=== PATIENT | male | born 1975 | race Caucasian/White ===

== ENCOUNTER 2017-08-23 16:52 | Emergency (ER) | payer BC, OTHER ==
[~2017-08-23] VITALS: Wt 86.2 kg
[~2017-08-23 16:52] MED LIST: AMITRIPTYLINE50 MG PO; BUSPAR15 MG PO; CARAFATE1 G1 PO; CITALOPRAM40 MG PO; CYMBALTA60 MG PO; DIPHEDRYL25 M3 PO; FLUDROCORTISON0.1 MG PO; IBU800 MG PO; NEURONTIN300 MG PO; PROAIR HFA8.5 GM IH; RISPERDAL0.5 MG PO; ROXICODONE30 MG PO; TRAMADOL HCL50 MG PO
[2017-08-23 18:02] LABS: HEMATOCRIT 49.4 % (42.0-52.0); HEMOGLOBIN 16.7 g/dl (14.0-18.0); MEAN CELL VOLUME 85.3 fl (80.0-94.0); MEAN CORPUSCULAR HGB 28.8 pg (27.0-31.0); MEAN CORPUSCULAR HGB CONC 33.8 g/dl (33.0-37.0); MEAN PLATELET VOLUME 8.3 fl (9.6-12.3); PLATELET COUNT AUTOMATED 208 10*3/uL (130-400); RED BLOOD COUNT 5.79 10*6/uL (4.50-5.90)
[2017-08-23 18:03] LABS: BILIRUBIN NEGATIVE (NEGATIVE); BLOOD 1+ (NEGATIVE); CLARITY CLEAR (CLEAR); COLOR YELLOW (YELLOW); GLUCOSE NEGATIVE (NEGATIVE); KETONE NEGATIVE (NEGATIVE); LEUKO ESTERASE NEGATIVE (NEGATIVE); NITRITE NEGATIVE (NEGATIVE); PH 5.5 (5.0-9.0); SPECIFIC GRAVITY <= 1.005 (1.005-1.030); UROBILINOGEN 0.2 E.U./dl (0.2-1.0)
[2017-08-23 18:13] LABS: URINE AMPHETAMINES < 1000 (1000ng/ml); URINE BARBITURATES < 200 (200ng/ml); URINE BENZODIAZEPINES < 200 (200ng/ml); URINE CANNABINOIDS (THC) < 50 (50ng/ml); URINE COCAINE < 300 (300ng/ml); URINE METHADONE < 300 (300ng/ml); URINE OPIATES < 300 (300ng/ml)
[2017-08-23 18:20] LABS: URINE PHENCYCLIDINE < 25 (25ng/ml)
[2017-08-23 18:23] LABS: ALBUMIN 4.4 gm/dl (3.1-4.5); ALKALINE PHOSPHATASE 122 U/L (45-117); BUN 5 mg/dl (7-24); CHLORIDE 108 mmol/L (98-107); CREATININE 0.71 mg/dL (0.70-1.30); LIPASE 229 U/L (73-393); POTASSIUM 3.4 mmol/L (3.5-5.1); SGOT/AST 21 IU/L (3-35); SGPT/ALT 22 U/L (12-78); SODIUM 143 mmol/L (136-145); TOTAL PROTEIN 7.5 gm/dL (6.4-8.2)
[2017-08-23 18:24] LABS: BACTERIA TRACE; RBC 0-2 rbc/hpf (0-2); WBC 0-2 wbc/hpf (0-5)
[2017-08-23 18:27] LABS: TROPONIN I < 0.015 ng/ml (<0.045)
[2017-08-23 18:35] LABS: ATYPICAL LYMPHS 3 % (0-0); BASOPHILS 2 % (0-1); PLATELET SUFFICIENCY NORMAL (NORMAL); TOTAL CELLS COUNTED 100 #CELLS
[2017-08-24 23:30] VITALS: BP 135/70
== END 2017-08-24 23:42 | disposition home health service (06) ==
LOC: ED 16:52
PROVIDERS: Emergency Medicine
DX: F10.129 Alcohol abuse with intoxication, unspecified (principal); R45.851 Suicidal ideations; Z98.890 Other specified postprocedural states; Z98.84 Bariatric surgery status; Z79.899 Other long term (current) drug therapy; Z88.5 Allergy status to narcotic agent; Z88.8 Allergy status to other drugs, medicaments and biological substances; Y90.9 Presence of alcohol in blood, level not specified

== ENCOUNTER 2018-10-28 22:03 | Emergency (ER) | payer OTHER, BC ==
[~2018-10-28] VITALS: Ht 172.7 cm; Wt 83.9 kg
--- NOTE | ~2018-10-28 | EKG ---
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
[2018-10-28 22:50] LABS: BASO # 0.1 10*3/uL (0.0-0.1); BASO % 1.1 % (0.0-1.0); EOS # 0.3 10*3/uL (0.0-0.4); EOS % 4.1 % (1.0-4.0); HEMATOCRIT 36.5 % (42.0-52.0); HEMOGLOBIN 11.7 g/dl (14.0-18.0); LYMPH # 2.3 10*3/uL (1.3-4.4); LYMPH % 38.3 % (27.0-41.0); MEAN CELL VOLUME 82.2 fl (80.0-94.0); MEAN CORPUSCULAR HGB 26.4 pg (27.0-31.0); MEAN CORPUSCULAR HGB CONC 32.1 g/dl (33.0-37.0); MEAN PLATELET VOLUME 8.7 fl (9.6-12.3); MONO # 0.5 10*3/uL (0.1-1.0); MONO % 7.4 % (3.0-9.0); NEUT # 2.9 10*3/uL (2.3-7.9); NEUT % 48.1 % (47.0-73.0); PLATELET COUNT AUTOMATED 197 10*3/uL (130-400); RED BLOOD COUNT 4.44 10*6/uL (4.50-5.90); WHITE BLOOD COUNT 6.1 10*3/uL (4.8-10.8)
[2018-10-28 23:06] LABS: ACETAMINOPHEN (TYLENOL) 9.4 ug/ml (10-30); ALBUMIN 3.4 gm/dl (3.1-4.5); ALKALINE PHOSPHATASE 53 U/L (45-117); BUN 6 mg/dl (7-24); CHLORIDE 106 mmol/L (98-107); CREATININE 0.76 mg/dL (0.70-1.30); POTASSIUM 3.6 mmol/L (3.5-5.1); SGOT/AST 18 IU/L (3-35); SGPT/ALT 22 U/L (12-78); SODIUM 140 mmol/L (136-145); TOTAL PROTEIN 6.5 gm/dL (6.4-8.2)
[2018-10-28 23:08] LABS: TROPONIN I < 0.015 ng/ml (<0.045)
[2018-10-29 00:48] LABS: BILIRUBIN NEGATIVE (NEGATIVE); BLOOD NEGATIVE (NEGATIVE); CLARITY CLEAR (CLEAR); COLOR STRAW (YELLOW); GLUCOSE TRACE (NEGATIVE); KETONE NEGATIVE (NEGATIVE); LEUKO ESTERASE NEGATIVE (NEGATIVE); NITRITE NEGATIVE (NEGATIVE); PH 6.5 (5.0-9.0); SPECIFIC GRAVITY <= 1.005 (1.005-1.030); UROBILINOGEN 0.2 E.U./dl (0.2-1.0)
[2018-10-29 00:59] LABS: EPITHELIAL CELLS 0-2; RBC 0-2 rbc/hpf (0-2); URINE AMPHETAMINES < 1000 (1000ng/ml); URINE BARBITURATES < 200 (200ng/ml); URINE BENZODIAZEPINES < 200 (200ng/ml); URINE CANNABINOIDS (THC) < 50 (50ng/ml); URINE COCAINE < 300 (300ng/ml); URINE METHADONE < 300 (300ng/ml); URINE OPIATES < 300 (300ng/ml); WBC 0-2 wbc/hpf (0-5)
[2018-10-29 01:01] LABS: URINE PHENCYCLIDINE < 25 (25ng/ml)
[2018-10-29 07:43] VITALS: BP 110/72
== END 2018-10-29 09:27 | disposition home or self-care (01) ==
LOC: ED 22:03
PROVIDERS: Emergency Medicine
DX: F31.9 Bipolar disorder, unspecified (principal); Z88.5 Allergy status to narcotic agent; Z88.8 Allergy status to other drugs, medicaments and biological substances; Z79.899 Other long term (current) drug therapy

== ENCOUNTER 2018-11-18 16:19 | Emergency (ER) | payer OTHER, BC ==
[~2018-11-18] VITALS: Wt 90.7 kg
--- NOTE | ~2018-11-18 | EKG ---
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
[2018-11-18 17:01] LABS: BASO % 0.8 % (0.0-1.0); HEMATOCRIT 38.1 % (42.0-52.0); HEMOGLOBIN 11.8 g/dl (14.0-18.0); LYMPH # 1.4 10*3/uL (1.3-4.4); LYMPH % 37.8 % (27.0-41.0); MEAN CELL VOLUME 82.3 fl (80.0-94.0); MEAN CORPUSCULAR HGB 25.5 pg (27.0-31.0); MEAN PLATELET VOLUME 8.7 fl (9.6-12.3); MONO # 0.4 10*3/uL (0.1-1.0); MONO % 9.7 % (3.0-9.0); NEUT # 1.9 10*3/uL (2.3-7.9); NEUT % 50.2 % (47.0-73.0); PLATELET COUNT AUTOMATED 176 10*3/uL (130-400); RED BLOOD COUNT 4.63 10*6/uL (4.50-5.90); RED CELL DISTRI WIDTH 15.4 % (0-14.5); WHITE BLOOD COUNT 3.8 10*3/uL (4.8-10.8)
[2018-11-18 17:38] LABS: ACETAMINOPHEN (TYLENOL) 5.1 ug/ml (10-30); ALBUMIN 3.5 gm/dl (3.1-4.5); ALKALINE PHOSPHATASE 57 U/L (45-117); BUN 6 mg/dl (7-24); CHLORIDE 102 mmol/L (98-107); CREATININE 0.67 mg/dL (0.70-1.30); POTASSIUM 3.6 mmol/L (3.5-5.1); SGOT/AST 17 IU/L (3-35); SGPT/ALT 15 U/L (12-78); SODIUM 138 mmol/L (136-145); TOTAL PROTEIN 6.2 gm/dL (6.4-8.2)
[2018-11-18 17:42] LABS: BILIRUBIN NEGATIVE (NEGATIVE); BLOOD NEGATIVE (NEGATIVE); CLARITY CLEAR (CLEAR); COLOR YELLOW (YELLOW); GLUCOSE NEGATIVE (NEGATIVE); KETONE NEGATIVE (NEGATIVE); LEUKO ESTERASE NEGATIVE (NEGATIVE); NITRITE NEGATIVE (NEGATIVE); SPECIFIC GRAVITY <= 1.005 (1.005-1.030); UROBILINOGEN 0.2 E.U./dl (0.2-1.0)
[2018-11-18 17:50] LABS: URINE AMPHETAMINES < 1000 (1000ng/ml); URINE BARBITURATES < 200 (200ng/ml); URINE BENZODIAZEPINES < 200 (200ng/ml); URINE CANNABINOIDS (THC) < 50 (50ng/ml); URINE COCAINE < 300 (300ng/ml); URINE METHADONE < 300 (300ng/ml); URINE OPIATES < 300 (300ng/ml)
[2018-11-18 18:04] LABS: URINE PHENCYCLIDINE < 25 (25ng/ml)
[2018-11-18 18:46] VITALS: BP 92/51
[2018-11-18 18:46] LABS: VALPROIC ACID (DEPAKENE) 1112.4 ug/ml (50-100)
== END 2018-11-18 19:00 | disposition short-term general hospital (02) ==
LOC: ED 16:19
PROVIDERS: Physician Assistant
DX: T42.6X2A Poisoning by other antiepileptic and sedative-hypnotic drugs, intentional self-harm, initial encounter (principal); G92 Toxic encephalopathy; J96.01 Acute respiratory failure with hypoxia; F31.9 Bipolar disorder, unspecified; F10.129 Alcohol abuse with intoxication, unspecified; Z88.6 Allergy status to analgesic agent; Z88.8 Allergy status to other drugs, medicaments and biological substances; Z79.899 Other long term (current) drug therapy; Y90.9 Presence of alcohol in blood, level not specified; Y92.89 Other specified places as the place of occurrence of the external cause

== ENCOUNTER 2019-11-24 18:51 | Inpatient (IN) | payer OTHER, BC ==
[2019-11-24] VITALS (7 sets, daily range): BP systolic 111–127; BP diastolic 62–75
[~2019-11-24] VITALS: Ht 177.8 cm; Wt 95.3 kg
--- NOTE | 2019-11-24 19:05 | NUR ---
Transfer of care from Gracie mae.
--- NOTE | 2019-11-24 19:12 | NUR ---
In to see pt at this time.Pt has 18 gauge infusing in left arm with fluids.Pt has clear lung sounds and bowel sounds x4.Pt states he has pain in right upper abdomen and started when he was eating ice cream.Pt states he is ok and does not need anything right now.
--- NOTE | 2019-11-24 19:14 | NUR ---
Pt denines wounds at this time.Pt has some old scratches on right and left knee at tbis time.
[2019-11-24 19:49] LABS: HEMATOCRIT 25.5 % (42.0-52.0); MEAN CELL VOLUME 67.3 fl (80.0-94.0); MEAN CORPUSCULAR HGB 17.4 pg (27.0-31.0); MEAN CORPUSCULAR HGB CONC 25.9 g/dl (33.0-37.0); MEAN PLATELET VOLUME 8.6 fl (9.6-12.3); PLATELET COUNT AUTOMATED 211 10*3/uL (130-400); RED BLOOD COUNT 3.79 10*6/uL (4.50-5.90); RED CELL DISTRI WIDTH 19.5 % (0-14.5); WHITE BLOOD COUNT 5.4 10*3/uL (4.8-10.8)
[2019-11-24 20:02] LABS: ALBUMIN 3.3 gm/dl (3.1-4.5); ALKALINE PHOSPHATASE 61 U/L (45-117); BUN 12 mg/dl (7-24); CHLORIDE 107 mmol/L (98-107); CREATININE 0.89 mg/dL (0.70-1.30); LIPASE 1214 U/L (73-393); POTASSIUM 3.5 mmol/L (3.5-5.1); SGOT/AST 14 IU/L (3-35); SGPT/ALT 11 U/L (12-78); SODIUM 136 mmol/L (136-145)
--- NOTE | 2019-11-24 20:05 | NUR ---
Pt to ct scan at this time.
[2019-11-24 20:06] LABS: BILIRUBIN NEGATIVE (NEGATIVE); BLOOD NEGATIVE (NEGATIVE); CLARITY CLEAR (CLEAR); COLOR STRAW (YELLOW); GLUCOSE NEGATIVE (NEGATIVE); KETONE NEGATIVE (NEGATIVE); LEUKO ESTERASE NEGATIVE (NEGATIVE); NITRITE NEGATIVE (NEGATIVE); SPECIFIC GRAVITY 1.005 (1.005-1.030); UROBILINOGEN 0.2 E.U./dl (0.2-1.0)
[2019-11-24 20:09] LABS: BASOPHILS 1 % (0-1); PLATELET SUFFICIENCY NORMAL (NORMAL); TOTAL CELLS COUNTED 100 #CELLS
[2019-11-24 20:17] LABS: EPITHELIAL CELLS 0-2; WBC 0-2 wbc/hpf (0-5)
--- NOTE | 2019-11-24 20:40 | NUR ---
aware of pt requesting more pain medications and stating that pain is not better at this time.
--- NOTE | 2019-11-24 21:05 | NUR ---
aware of pt refusing to place gown on at this time till her has more pain medication at this time.
--- NOTE | 2019-11-24 21:25 | NUR ---
Spoke with Pharmacy and aware when protinx scanned it stated to was zoyson.Ok to send back at this time.
--- NOTE | 2019-11-24 21:31 | NUR ---
Blood back stated blood was ready at this time.
--- NOTE | 2019-11-24 22:20 | NUR ---
Pt states pain is 10/10 at this time and not improving pt will fall asleep when leaving the room.
--- NOTE | 2019-11-24 22:40 | NUR ---
aware of pt requesting more pain medication at this time and wishing to speak to md at this time.
--- NOTE | 2019-11-24 23:05 | NUR ---
Pt to ct scan at this time.Blood infusing at 125 and prontix drip at 10cc per order and with pt at this time.
--- NOTE | 2019-11-24 23:28 | NUR ---
aware of pt requesting to speak to him at this time.
--- NOTE | 2019-11-24 23:29 | NUR ---
In to see pt at this time. Pt requesting more pain medication at this time.Explained to pt that we will get pt to room at this time.Emotional support attempted at this time.
--- NOTE | 2019-11-24 23:43 | NUR ---
Blood increased to 150 cc an hour at this time.
[2019-11-25] VITALS (15 sets, daily range): BP systolic 100–139; BP diastolic 56–89
--- NOTE | 2019-11-25 00:17 | NUR ---
Also attempted to call report at this time.
--- NOTE | 2019-11-25 00:20 | NUR ---
Report called to Anika mae.
--- NOTE | 2019-11-25 00:28 | NUR ---
Pt transport to floor with Shanique mae.Pt on monitor and blood and protonix infusing.
--- NOTE | 2019-11-25 00:35 | NUR ---
A 44, admitted to , under the services of SUZIE Gold DO with a diagnosis of ULCER. ANEMIA (HGB 6.6). PANCREATITIS. Chief complaint is SUDDEN RUQ PAIN . Patient arrived via bed from ER. Monitor applied. Initial assessment completed. Vital signs taken and recorded. SUZIE GOLD DO / DR OSBOREN notified of admission to the unit. Orders received. See assessment for past medical history, medications and allergies. Patient and/or family oriented to unit. [facility] visitation policy reviewed. Clothing/patient valuable form completed. ZANDER WHITEHEAD
[2019-11-25] MEDS ORDERED: RISPERIDONE1 MG PO (00:45)
[2019-11-25] MEDS ORDERED: DULOXETINE HCL60 MG PO (00:45)
--- NOTE | 2019-11-25 01:00 | NUR ---
ABRASIONS NOTED TO BILATERAL KNEES, REFUSING PICS
--- NOTE | 2019-11-25 01:15 | NUR ---
MEDICATED WITH ROUTINE DILAUDID IV PER ORDER FOR COMPLAINTS OF RIGHT ABD PAIN RATING A 10. WILL MONITOR FOR EFFECTIVENESS
--- NOTE | 2019-11-25 01:56 | NUR ---
2ND UNIT OF BLOOD TRANSFUSION INITIATED PER ORDER. VSS. PATIENT TOLERATING
--- NOTE | 2019-11-25 02:00 | NUR ---
MEDS APPEAR EFFECTIVE. RESTING WITH EYES CLOSED. RESPIRATIONS EASY. BLOOD TRANSFUSING PER ORDER. VSS. CALL LIGHT WITHIN REACH
--- NOTE | 2019-11-25 03:00 | NUR ---
BLOOD TRANSFUSION MAINTAINED. VSS. CALL LIGHT WITHIN REACH. NO VOICED COMPLAINTS
--- NOTE | 2019-11-25 04:00 | NUR ---
BLOOD CONTINUES TO TRANSFUSE PER ORDER. PATIENT TOLERATING WELL WITH NO ADVERSE REACTION NOTED
--- NOTE | 2019-11-25 04:18 | NUR ---
BLOOD TRANSFUSION COMPLETE. VITALS REMAINS STABLE. CALL LIGHT WITHIN REACH.
--- NOTE | 2019-11-25 05:58 | NUR ---
TATELAURA P [id number] Please refer to the physician's history and physical for past medical history, comorbid conditions, and allergies. Diagnosis: ULCER ANEMIA PANCREATITIS Darryl Score: 20,LOW OR NO RISK WOUND DESCRIPTIONS: Wound Number: 1 Location of the wound: right knee Type of wound: abrasion Thickness: Partial Size: 8.5cm x 10.5cm x <0.1cm Tunneling: none Undermining: none Sinus Tract: none Presence of Exudate: none Amount: None Color: Red, yellow, brown Odor: None Periwound Skin Appearance: Erythema Wound edges: approximated Pain (associated with wound): none at time of assessment How does patient state this happened? pt states this happened about 6 days ago when he fell playing basketball Wound Number: 2 Location of the wound: left knee Type of wound: abrasion Thickness: Partial Size: 6.5cm x 6.0cm x <0.1cm Tunneling: none Undermining: none Sinus Tract: none Presence of Exudate: none Amount: None Color: Red, yellow, brown Odor: None Periwound Skin Appearance: Erythema Wound edges: approximated Pain (associated with wound): none at time of assessment How does patient state this happened? pt states this happened about 6 days ago when he fell playing basketball This nurse went to obtained photographs and patient refused at this time. Patient also states that he doesn't want any treatments at this time. Surface the patient is resting on: Isoflex SKIN PREVENTION RECOMMENDATION: 1. Pressure redistribution support surface as appropriate 2. Elevate heels 3. Remove boots/TEDS every shift and reapply 4. Head of bed 30 degrees as tolerated 5. Assess nutrition and hydration 6. Manage moisture 7. Avoid the use of containment devices while in bed 8. Use absorptive products on surfaces limit layers of linens on bed 9. Turn and reposition every 1-2 hours in bed and every 1 hour in chair as tolerated 10. Weight shifts every 15 minutes while up in chair 11. Offloading with pillows or device to keep heels elevated off bed 12. Monitor skin at least every shift 13. Inspect under medical devices twice a day WOUND TREATMENT RECOMMENDATIONS: Cleanse right and left knee with nss and apply bactroban bid and cover with dsd. Patient states he will care for these areas when he returns home and doesn't wish to follow up in an outpatient setting at this time
--- NOTE | 2019-11-25 06:00 | NUR ---
RESTING WITH EYES CLOSED. RESPIRATIONS EASY. IV FLUIDS AND PROTONIX DRIP MAINTAINED. CALL LIGHT WITHIN REACH.
[2019-11-25 07:00] LABS: HEMATOCRIT 39.4 % (42.0-52.0); MEAN CELL VOLUME 68.3 fl (80.0-94.0); MEAN CORPUSCULAR HGB 19.1 pg (27.0-31.0); MEAN CORPUSCULAR HGB CONC 27.9 g/dl (33.0-37.0); MEAN PLATELET VOLUME 8.8 fl (9.6-12.3); NUCLEATED RED BLOOD CELL 1.6 % (0.0-0.0); PLATELET COUNT AUTOMATED 233 10*3/uL (130-400); RED BLOOD COUNT 5.77 10*6/uL (4.50-5.90); RED CELL DISTRI WIDTH 21.7 % (0-14.5)
[2019-11-25 07:02] LABS: WHITE BLOOD COUNT 1.9 10*3/uL (4.8-10.8)
[2019-11-25 07:26] LABS: ALBUMIN 3.2 gm/dl (3.1-4.5); ALKALINE PHOSPHATASE 51 U/L (45-117); BUN 10 mg/dl (7-24); CHLORIDE 110 mmol/L (98-107); CREATININE 0.72 mg/dL (0.70-1.30); POTASSIUM 3.6 mmol/L (3.5-5.1); SGOT/AST 53 IU/L (3-35); SGPT/ALT 14 U/L (12-78); SODIUM 137 mmol/L (136-145); TOTAL PROTEIN 6.3 gm/dL (6.4-8.2)
--- NOTE | 2019-11-25 07:50 | NUR ---
DR OSBORNE CONTACTED [facility]. LABS REVIEWED FROM ADMISSION AND THIS AM. STAT LABS ORDERED FOR VERIFICATION
[2019-11-25 08:10] LABS: HEMATOCRIT 39.4 % (42.0-52.0); MEAN CELL VOLUME 67.9 fl (80.0-94.0); MEAN CORPUSCULAR HGB 19.5 pg (27.0-31.0); MEAN CORPUSCULAR HGB CONC 28.7 g/dl (33.0-37.0); MEAN PLATELET VOLUME 8.2 fl (9.6-12.3); NUCLEATED RED BLOOD CELL 0.1 10*3/uL (0.0-0.0); NUCLEATED RED BLOOD CELL 2.4 % (0.0-0.0); PLATELET COUNT AUTOMATED 220 10*3/uL (130-400); RED CELL DISTRI WIDTH 21.7 % (0-14.5); WHITE BLOOD COUNT 2.1 10*3/uL (4.8-10.8)
[2019-11-25 08:17] LABS: ATYPICAL LYMPHS 1 % (0-0); TOTAL CELLS COUNTED 100 #CELLS
[2019-11-25 08:18] LABS: MICROCYTOSIS MODERATE; OVALOCYTES FEW; PLATELET SUFFICIENCY NORMAL (NORMAL); POLYCHROMASIA SLIGHT; TARGET CELLS FEW
--- NOTE | 2019-11-25 08:23 | NUR ---
PT COMPLAINS OF PAIN IN RUQ AREA RATED AT A 10. SCHEDULED DILAUDID ADMINISTERED AT THIS TIME. WILL MONITOR FOR EFFECTIVENESS.
[2019-11-25 08:40] LABS: PLATELET SUFFICIENCY NORMAL (NORMAL); POLYCHROMASIA SLIGHT; TOTAL CELLS COUNTED 100 #CELLS
[2019-11-25 08:41] LABS: MICROCYTOSIS MODERATE; OVALOCYTES FEW; SCHISTOCYTES FEW; TARGET CELLS FEW
--- NOTE | 2019-11-25 09:23 | NUR ---
PT STATES SOME RELIEF FROM SCHEDULED DILAUDID. WILL CONTINUE TO MONITOR.
--- NOTE | 2019-11-25 09:52 | NUR ---
Dr. Phipps notified of wound care recommendations.
--- NOTE | 2019-11-25 10:35 | NUR ---
PT STATES HE IS HAVING ABDOMINAL PAIN. PRN NORCO ADMINISTERED AT THIS TIME. WILL MONITOR FOR EFFECTIVENESS.
--- NOTE | 2019-11-25 11:35 | NUR ---
[facility]
--- NOTE | 2019-11-25 11:56 | NUR ---
PT COMPLAINS OF PAIN RATED AT A 10 AT THIS TIME. SCHEDULED DIALUDID ADMINISTERED. WILL MONITOR FOR EFFECTIVENESS.
--- NOTE | 2019-11-25 12:27 | NUR ---
Nutritonal Support Services Note: Pt is NPO at this time sec to dx of pancreatitis. Abrasions noted to knees, states he fell playing basketball. Will follow for advancement of po intake. Vika Carl Rdn Ld
--- NOTE | 2019-11-25 12:56 | NUR ---
PT STATES SOME RELIEF FROM DILAUDID.
--- NOTE | 2019-11-25 14:26 | NUR ---
Home Restoration Service Supervisor in to talk to patient. Patient states lives at HOME with . There are MO steps in the home. Physician: EMILEE CARLSON Pharmacy: [facility] Home health services: NONE Patient's level of ADLs: INDEPENDENT Patient has working utilities: YES DME: NONE Follow-up physician's appointment after d/c: WILL BE MADE BY HOSPITALIST NURSE DIRECTOR ON DISCHARGE. Does patient want to access PORTAL?: NO Discharge plan PT LIVES AT HOME WITH HIS AND IS INDEPENDENT IN HIS CARE. DENIES HE WILL HAVE ANY NEEDS ON DISCHARGE. PLAN IS TO RETURN HOME WHEN MEDICALLY STABLE. WILL CONTINUE TO FOLLOW. STATES HE WILL HAVE A RIDE HOME.. DWAYNE BONILLA
--- NOTE | 2019-11-25 15:47 | NUR ---
SCHEDULED DILAUDID GIVEN IV AT THIS TIME PATIENT STATED PAIN WAS A 10/10 IN HIS ABDOMINAL AREA. A&O X3, CALL LIGHT WITHIN REACH, WILL CONTINUE TO MONITOR. IV FLUIDS AND PROTONIX DRIP INFUSING WITHOUT INCIDENT.
--- NOTE | 2019-11-25 16:39 | NUR ---
PATIENT STATE PAIN IN HIS ABDOMINAL AREA WAS STILL AN 8/10 AFTER SCHEDULED DILAUDID HAD BEEN GIVEN. PRN NORCO GIVEN AT THIS TIME FOR 8/10 PAIN IN HIS ABDOMEN. A&O X3, CALL LIGHT WITHIN REACH WILL CONTINUE TO MONITOR.
--- NOTE | 2019-11-25 19:42 | NUR ---
SCHEDULED DILAUDID IV GIVEN AT THIS TIME. PATIENT STATED THAT HIS ABDOMINAL PAIN IS A 10/10 AT THIS TIME. A&O X3, CALL LIGHT WITHIN REACH, WILL CONTINUE TO MONITOR.
--- NOTE | 2019-11-25 20:00 | NUR ---
AIDE NOTIFIED THIS RN THAT PATIENT SPO2 ON ROOM AIR WAS 86-88%, SHE HAD ENCOURAGED PATIENT TO TAKE SOME DEEP BREATHS BUT PATIENT STATED THAT "HIS STOMACH HURT TOO MUCH." UPON ASSESSMENT PATIENT SPO2 ON ROOM AIR WAS 87-88% AND THIS RN PLACED PATIENT ON NC 2LPM AT THIS TIME, SPO2 93% ON THE NC.
--- NOTE | 2019-11-25 20:30 | NUR ---
PATIENT STATED THAT HIS ABDOMINAL PAIN IS A 9/10 AT THIS TIME AFTER SCHEDULED DILAUDID HAD BEEN ADMINISTERED. A&O X3, CALL LIGHT WITHIN REACH WILL, WILL CONTINUE TO MONITOR.
--- NOTE | 2019-11-25 21:15 | NUR ---
PRN NORCO GIVEN PO AT THIS TIME FOR COMPLAINT OF CONTINUED ABDOMINAL PAIN 01/15. A&O X3, CALL LIGHT WITHIN REACH WILL CONTINUE TO MONITOR.
--- NOTE | 2019-11-25 22:00 | NUR ---
PATIENT STATED THAT HIS ABDOMINAL PAIN IS NOW A 7/10 AFTER PRN NORCO WAS ADMINISTERED PO. A&O X3, CALL LIGHT WITHIN REACH, WILL CONTINUE TO MONITOR.
[2019-11-26] VITALS (10 sets, daily range): BP systolic 85–130; BP diastolic 55–92
--- NOTE | 2019-11-26 00:15 | NUR ---
NOTIFIED DR. SANTORO PATIENTS HR HAS SUBSTAINED 140S FOR 20 MINUTES. PATIENT IN BED, C/O RIGHT SIDED PAIN. RATES 8/10. VOICES NO OTHER COMPLAINTS.PATIENT PALE, COOL TO TOUCH. TYMPANIC TEMP 99.9. AWAITING ORDERS.
[2019-11-26 00:58] LABS: HEMATOCRIT 44.3 % (42.0-52.0); MEAN CELL VOLUME 69.8 fl (80.0-94.0); MEAN CORPUSCULAR HGB 19.4 pg (27.0-31.0); MEAN CORPUSCULAR HGB CONC 27.8 g/dl (33.0-37.0); MEAN PLATELET VOLUME 9.1 fl (9.6-12.3); PLATELET COUNT AUTOMATED 275 10*3/uL (130-400); RED BLOOD COUNT 6.35 10*6/uL (4.50-5.90); RED CELL DISTRI WIDTH 22.5 % (0-14.5)
--- NOTE | 2019-11-26 01:10 | NUR ---
DR. SANTORO ON FLOOR TO SEE PATIENT.
--- NOTE | 2019-11-26 01:10 | NUR ---
PATIENT OFF FLOOR FOR CHEST XRAY
[2019-11-26 01:15] LABS: CHLORIDE 109 mmol/L (98-107); CREATININE 1.01 mg/dL (0.70-1.30); POTASSIUM 4.5 mmol/L (3.5-5.1); SODIUM 137 mmol/L (136-145)
[2019-11-26 01:17] LABS: BUN 21 mg/dl (7-24); TROPONIN I < 0.015 ng/ml (<0.045)
--- NOTE | 2019-11-26 01:20 | NUR ---
DR. SANTORO ON FLOOR TO SEE PATIENT.
--- NOTE | 2019-11-26 01:24 | NUR ---
PATIENT BACK FROM CHEST XRAY. VITALS TAKEN. PULSE OX 85% ON RA. PLACED ON 6L NC. PULSE OX NOW 88-90%. RESPIRATORY CALLED. ATTEMPTED TO NOTIFY DR. SANTORO. NO ANSWER LEILA PERERA.
[2019-11-26 01:26] LABS: TOTAL CELLS COUNTED 100 #CELLS
[2019-11-26 01:27] LABS: PLATELET SUFFICIENCY NORMAL (NORMAL)
--- NOTE | 2019-11-26 01:35 | NUR ---
NOTIFIED DR. SANTORO PATIENT IS NOW ON 8L HIGH FLOW. CTA ORDER
--- NOTE | 2019-11-26 02:35 | NUR ---
PATIENT PLACED ON PORTABLE O2 TANK AT THIS TIME AND TRANSPORTED TO CT FOR CTA AT THIS TIME.
--- NOTE | 2019-11-26 03:00 | NUR ---
PATIENT RETURNED FROM CT AT THIS TIME AND PLACED BACK ON WALL O2 AT 8LPM, IV FLUIDS AND PROTONIX RESTARTED AT THIS TIME. WILL MONITOR.
--- NOTE | 2019-11-26 03:22 | NUR ---
DR. SANTORO NOTIFIED OF PATIENT HEART RATE SUSTAINING 145-152. NO ORDERS AT THIS TIME, HE WILL BE UP TO REEVALUATE PATIENT.
--- NOTE | 2019-11-26 03:45 | NUR ---
SPOKE WITH DR. YAO AND RELAYED DR. SANTORO SUGGESTION ON PLACING AN NG FOR DECOMPRESSION DUE TO DILATED COLON/AIR. OKAY TO PLACE NG.
--- NOTE | 2019-11-26 04:05 | NUR ---
NOTIFIED OF CTA RESULTS BY DR. SANTORO, ORDERS RECEIVED TO NOTIFIY OR STAFF, OBTAIN PERMIT FOR LAPRASCOPIC EXPLORATION WITH POSSIBLE OPEN WITH POSSIBLE BOWEL RESECTION. SUE RN HOSE CEMENTER NOTIFIED TO CONTACT OR STAFF. CHECKLIST REVIEWED WITH PATIENT AND PLACED ON OR CLIPBOARD. NG ORDER DISCONTINUE AT THIS TIME DUE TO POSSIBLE PERFORATION. PATIENT TO OR WHEN STAFF ARRIVES.
--- NOTE | 2019-11-26 05:27 | NUR ---
PATIENT OFF OF THE FLOOR AT THIS TIME TO SURGERY. MONITOR REMOVED AND ON WINDOWSILL IN PATIENT ROOM. THREE IV PUMPS WITH IV FLUIDS, PROTONIX DRIP AND ANTIBIOTIC ZOSYN WITH PATIENT.
--- NOTE | 2019-11-26 06:35 | NUR ---
ATTEMPTED TO CONTACT PATIENT TO UPDATE HER ON PATIENT CONDITION AND EMERGENCY SURGERY, CALL WENT STRAIGHT TO VOICEMAIL.
--- NOTE | 2019-11-26 07:15 | NUR ---
SHIFT REPORT GIVEN TO RAOUL IN ICU AT THIS TIME.
--- NOTE | 2019-11-26 08:00 | NUR ---
RECEIVED INTO ICCU-2 VIA BED ACCOMPANIED BY NURSE AND NURSE ASSOCIATE PROFESSOR OF BIOSTATISTICS NICKY. AFEBRILE. REMAINS ON VENT WITH SETTING OF TV 600, CMV 12, FIO2 60%, AND PEEP 7. SCATTERED RHONCHI HEARD IN LUNG HUNTER. ESOPHAGEAL TEMP 97.1. BP 129/76.PULSE OX 97%. NO EDEMA NOTED. ANGELO INTACT AND DRAINING CLEAR YELLOW URINE. MIDLINE INCISION INTACT WITH DRESSING DRY AND INTACT. BILATERAL J/P'S INTACT AND DRAINING SEROUS. EYES OPEN WITH ANY CARE. DIPRIVAN GTT STARTED AT 20 AGNIESZKA'S
--- NOTE | 2019-11-26 08:26 | NUR ---
PT BROUGHT FROM SURGERY PLACED ON VENTILATOR POST SURGERY. PT VT 600/12/60%/+7 PT TOLERATING WELL. SPO2 94, HR 110
[2019-11-26 08:59] LABS: ARTERIAL BLOOD GAS PH 7.28 (7.35-7.45)
[2019-11-26 09:55] LABS: BILIRUBIN NEGATIVE (NEGATIVE); BLOOD 1+ (NEGATIVE); CLARITY CLEAR (CLEAR); COLOR YELLOW (YELLOW); GLUCOSE NEGATIVE (NEGATIVE); KETONE NEGATIVE (NEGATIVE); LEUKO ESTERASE NEGATIVE (NEGATIVE); NITRITE NEGATIVE (NEGATIVE); SPECIFIC GRAVITY 1.015 (1.005-1.030); UROBILINOGEN 0.2 E.U./dl (0.2-1.0)
--- NOTE | 2019-11-26 09:58 | NUR ---
DR SOMMER CHANGED SETTINGS TO F540/20/50% +7. DO ABG IN 2 HRS
[2019-11-26 09:59] LABS: BACTERIA 2+
[2019-11-26 10:00] LABS: MUCOUS 1+
[2019-11-26 10:24] LABS: HEMATOCRIT 40.2 % (42.0-52.0); MEAN CELL VOLUME 71.3 fl (80.0-94.0); MEAN CORPUSCULAR HGB 19.3 pg (27.0-31.0); MEAN CORPUSCULAR HGB CONC 27.1 g/dl (33.0-37.0); PLATELET COUNT AUTOMATED 262 10*3/uL (130-400); RED BLOOD COUNT 5.64 10*6/uL (4.50-5.90)
[2019-11-26 10:32] LABS: WHITE BLOOD COUNT 1.8 10*3/uL (4.8-10.8)
[2019-11-26 10:39] LABS: IRON 25 ug/dL (65-175); TOTAL IRON BINDING CAPACITY 502 ug/dl (250-450)
[2019-11-26 10:43] LABS: ALKALINE PHOSPHATASE 38 U/L (45-117); BUN 22 mg/dl (7-24); CHLORIDE 109 mmol/L (98-107); CREATININE 1.02 mg/dL (0.70-1.30); POTASSIUM 4.9 mmol/L (3.5-5.1); SGOT/AST 37 IU/L (3-35); SGPT/ALT 17 U/L (12-78); SODIUM 136 mmol/L (136-145); TOTAL PROTEIN 5.3 gm/dL (6.4-8.2)
--- NOTE | 2019-11-26 10:47 | NUR ---
DR WELSL WAS NOTIFIED OF WBC 1.8, HE THEN NOTIFIED DR SUMNER VIA PHONE.
[2019-11-26 11:02] LABS: BURR CELLS MODERATE; PLATELET SUFFICIENCY NORMAL (NORMAL); TOTAL CELLS COUNTED 100 #CELLS
[2019-11-26 11:03] LABS: SCHISTOCYTES FEW
[2019-11-26 11:49] LABS: ABG BASE EXCESS -6.3 mmol/L (-2.0-2.0); ARTERIAL BLOOD GAS PH 7.316 (7.35-7.45)
--- NOTE | 2019-11-26 12:08 | NUR ---
DR. SOMMER NOTIFIED OF ABG RESULTS AND LABS.
[2019-11-26 15:54] LABS: ABG BASE EXCESS -5.6 mmol/L (-2.0-2.0); ARTERIAL BLOOD GAS PH 7.347 (7.35-7.45)
--- NOTE | 2019-11-26 16:52 | NUR ---
MEDICATED WITH DILAUDID 1MG IV FOR COMPLAINTS OF PAIN. NODS HEAD WHEN ASKED IF HE IS IN PAIN.
--- NOTE | 2019-11-26 17:30 | NUR ---
DILAUDID EFFECTIVE. HEART RATE REMAINS 125-130 SINUS TACHYCARDIA
[2019-11-26 18:11] LABS: ARTERIAL BLOOD GAS PH 7.319 (7.35-7.45)
[2019-11-26 18:12] LABS: ABG BASE EXCESS -6.5 mmol/L (-2.0-2.0)
--- NOTE | 2019-11-26 19:47 | NUR ---
DR SOMMER CALLED WITH 6PM ABG RESULTS, STATES TO KEEP QXYGEN THE SAME AND TO OBTAIN ABG IN AM
--- NOTE | 2019-11-26 20:15 | NUR ---
2000 SCHEDULED DOSE OF DILUADID GIVEN AT THIS TIME FOR POST OPERATIVE PAIN. PATIENT AWAKENS VERY EASILY TO ANY STIMULI, NODS HEAD YES WHEN ASKED IF IN PAIN. RN WILL MONITOR FOR RELIEF OF PAIN.
--- NOTE | 2019-11-26 21:30 | NUR ---
PATIENT APPEARS TO BE RESTING WELL AT THIS TIME SINCE EARLIER PAIN MEDICATION. BLOOD PRESSURE STABLE BUT HEARTRATE REMAINS IN THE 120'S.
[2019-11-27] VITALS (10 sets, daily range): BP systolic 88–132; BP diastolic 54–75
--- NOTE | 2019-11-27 00:15 | NUR ---
0000 DOSE OF DILUADID GIVEN AT THIS TIME PER DRS ORDERS FOR POST OPERATIVE PAIN RELATED TO SURGERY. RN WILL MONITOR FOR RELIEF
--- NOTE | 2019-11-27 01:15 | NUR ---
EARLIER DOSE OF PAIN MEDICATION SEEMS TO HAVE BEEN EFFECTIVE HEARTRATE HAS DECREASED TO UPPER 110'S-LOW 120'S RN WILL CONTINUE TO MONITOR
--- NOTE | 2019-11-27 04:01 | NUR ---
0401 DILAUDID GIVEN AT THIS TIME, PER DRS ORDERS FOR PAIN RELATED TO SURGICAL INCISION. RN WILL CONTINUE TO MONITOR
[2019-11-27 06:34] LABS: HEMATOCRIT 32.4 % (42.0-52.0); MEAN CORPUSCULAR HGB 19.2 pg (27.0-31.0); MEAN CORPUSCULAR HGB CONC 27.5 g/dl (33.0-37.0); MEAN PLATELET VOLUME 9.7 fl (9.6-12.3); NUCLEATED RED BLOOD CELL 0.7 % (0.0-0.0); PLATELET COUNT AUTOMATED 257 10*3/uL (130-400); RED BLOOD COUNT 4.63 10*6/uL (4.50-5.90); RED CELL DISTRI WIDTH 21.5 % (0-14.5); WHITE BLOOD COUNT 4.4 10*3/uL (4.8-10.8)
[2019-11-27 06:54] LABS: ALBUMIN 1.7 gm/dl (3.1-4.5); CHLORIDE 110 mmol/L (98-107); CREATININE 1.36 mg/dL (0.70-1.30); POTASSIUM 4.7 mmol/L (3.5-5.1); SGOT/AST 38 IU/L (3-35); SGPT/ALT 20 U/L (12-78); SODIUM 138 mmol/L (136-145)
[2019-11-27 06:57] LABS: ALKALINE PHOSPHATASE 40 U/L (45-117); TOTAL PROTEIN 5.2 gm/dL (6.4-8.2)
[2019-11-27 07:13] LABS: BUN 35 mg/dl (7-24)
[2019-11-27 07:19] LABS: PLATELET SUFFICIENCY NORMAL (NORMAL); TOTAL CELLS COUNTED 100 #CELLS
[2019-11-27 07:20] LABS: BURR CELLS FEW; POLYCHROMASIA SLIGHT
[2019-11-27 07:28] LABS: ARTERIAL BLOOD GAS PH 7.319 (7.35-7.45)
--- NOTE | 2019-11-27 07:30 | NUR ---
PATIENT MEDICATED WITH 0800 SCHEDULED DILAUDID FOR POST OP PAIN. RN WILL CONTINIUE TO MONITOR
[2019-11-27 07:34] LABS: ABG BASE EXCESS -6.1 mmol/L (-2.0-2.0)
--- NOTE | 2019-11-27 07:49 | NUR ---
WOUND CARE DONE TO BILATERAL KNEES AT THIS TIME. PATIENT TOLERATED WELL
--- NOTE | 2019-11-27 09:15 | NUR ---
DR SOMMER PLACED PT ON CPAP 04/11, ABGS IN 2 HRS, SPO2 95%, HR 121
--- NOTE | 2019-11-27 09:20 | NUR ---
SEDATION OFF PER DR SOMMER REQUEST. WITHIN SIGHT OF RN
--- NOTE | 2019-11-27 09:25 | NUR ---
DR SOMMER IN TO SEE PATIENT AT THIS TIME, TURNED VENTILATOR INTO CPAP MODE SETTINGS 04/11 25% PATIENT TOLERATING WELL.
--- NOTE | 2019-11-27 09:55 | NUR ---
PATIENT IN CPAP MODE WITH NO SEDATION AT THIS TIME, PATIENT REMAINS INTUBATED. TOLERATING OKAY, IS VERY RESTLESS AND FIDGETY. WHILE THIS RN WAS IN THE RESTROOM, ANOTHER RN WAS WATCHING PATIENT. I THEN HEARD YELLING AND CAME OUT INTO PATIENTS ROOM. 2 RN'S AND SEVERAL RESIDENTS ARE IN ROOM, PATIENT HAS SELF EXTUBATED. IS TALKING AND DISPLAYING NO SIGNS OR SYMPTOMS OF DISTRESS. 4LITERS NASAL CANNULA APPLIED TO PATIENT. PULSE OXIMETRY IS 97%. PATIENT HAS CALL LIGHT WITHIN REACH. WITHIN SIGHT OF THIS RN
--- NOTE | 2019-11-27 10:00 | NUR ---
DR SOMMER CALLED REGARDING PATIENT SELF EXTUBATION. STATES TO DO ABG IN 1 HOUR. MAINTAIN PULSE OXIMETRY ABOVE 92%
[2019-11-27 11:26] LABS: ABG BASE EXCESS -2.9 mmol/L (-2.0-2.0); ARTERIAL BLOOD GAS PH 7.396 (7.35-7.45)
--- NOTE | 2019-11-27 11:30 | NUR ---
PT REMAINS ON VENT. UNABLE TO DISCUSS DISCHARGE PLANS AT THIS TIME.
--- NOTE | 2019-11-27 14:32 | NUR ---
MEDICATED WITH DILAUDID 1MG IV FOR COMPLAINTS OF ABDOMINAL PAIN. RATES PAIN A 10 ON A SCALE OF 1-10
--- NOTE | 2019-11-27 17:38 | NUR ---
MEDICATED WITH DILAUDID 1MG IV FOR COMPLAINTS OF ABDOMINAL PAIN. RATES PAIN A 10 ON A PAIN SCALE OF 10
--- NOTE | 2019-11-27 17:38 | NUR ---
MEDICATED WITH DILAUDID 1MG IV FOR COMPLAINTS OF ABDOMINAL PAIN. RATES PAIN A 10 ON A PAIN SCALE OF 1-10
--- NOTE | 2019-11-27 18:56 | NUR ---
Shift chart check completed.24 HR chart check completed.
--- NOTE | 2019-11-27 20:00 | NUR ---
ON ASSESSMENT PATIENT ALERT, ORIENTED, RESTING EASILY. HIS ABDOMEN IS SOFT AND SILENT. HE DENIED PASSING ANY GAS. MIDLINE DRESSING INTACT WITH NO DRAINAGE THROUGH THE GAUZE. TWO PRIYA BULBS WITH SEROSANGUINOUS DRAINAGE. PROTONIX DRIP CONTINUES AT 10ML/HR. ANGELO PATENT KAMI URINE. RT BRACHEAL ARTERIAL LINE INTACT, ZEROED. PATIENT ENCOURAGED TO COUGH, DEEP BREATHE, USE HIS INCENTIVE SPIROMETER AND MOVE HIS LEGS. MONITOR SINUS TACHY 108-118. NASAL CANNULA 2L/MIN. SEE ALL APPROPRIATE INTERVENTIONS.
--- NOTE | 2019-11-27 20:28 | NUR ---
DILAUDID 1MG IV SLOWLY FOR POST OPERATIVE DISCOMFORT "8"/10. HE POINTS TO HIS LOWER ABDOMINAL AREA. HE HAS HAD THREE ICE CUBES WHICH HE WAS INSTRUCTED TO JUST KEEP IN HIS MOUTH. HE ASKED FOR MORE AND WILL PROVIDE LATER.
--- NOTE | 2019-11-27 21:00 | NUR ---
IN TO CHECK ON PT. AGAIN DISCONNECTED SELF FROM IV PUMPS. IV FOUND TO BE PULLED OUT IN L HAND. SITE ASYMP. DRESSING APPLIED. PT ALSO PULLED OFF EKG LEADS AND AND DRESSING. SMALL AMOUNTS OF BLOODY DRAINAGE NOTED ON GOWN. RE-EDUCATED PT-VERBALIZED UNDERSTANDING.PT A/O X3. RESPS EASY AND NON LABORED. NO S/S OF DISTRESS NOTED. NEW DSD APPLIED TO ABD WOUND. NO S/S OF INFECTION PRESENT AROUND KAMAR. RE-ATTACHED TO HEART MONITOR. NEW IV STARTED IN THE L ARM AFTER 1 ATTEMPT W 22 GAUGE. PREPPED W CHLORAPREP.VSS. BED ALARM INTACT. LIPIDS/TPN/PROTONIX INFUSING W/O INCIDENT. PT CONTINUES TO REFUSE OXYGEN-IMMEDIATELY REMOVES IT WHEN REPLACED. STATING HE DOES NOT NEED IT. CALL LIGHT WITHIN REACH.
--- NOTE | 2019-11-27 21:05 | NUR ---
PT REPORTS HIS PAIN LEVEL DOWN "A LITTLE". HE'S BEEN DOING HIS INCENTIVE SPIROMETER AND IS LYING WITH HIS LEGS CROSSED IN BED, APPEARS COMFORTABLE SINCE EARLIER DILAUDID.
--- NOTE | 2019-11-27 23:40 | NUR ---
DILAUDID GIVEN PER PT FOR ABD PAIN RATED 9/10 PATIENT STATES PAIN IS DULL ACHE AND GRADUALLY BECOMES WORSE. WILL CONTINUE TO MONITOR, CALL LIGHT WITHIN REACH.
[2019-11-28] VITALS (23 sets, daily range): BP systolic 116–140; BP diastolic 63–74
--- NOTE | 2019-11-28 00:17 | NUR ---
PATIENT STATES DILAUDID HELPED AND WAS EFFECTIVE. PATIENT RATES PAIN A 6/10 AT THIS TIME BUT TOLERABLE. CALL LIGHT WITHIN REACH.
--- NOTE | 2019-11-28 03:44 | NUR ---
Shift chart check completed.
--- NOTE | 2019-11-28 04:15 | NUR ---
PATIENT CALLED OUT WANTING MORE PAIN MEDICATIONS. EXPLAINED TO HIM WHAT TIME HE HAD IT & AGAIN WHAT TIME IT WAS ALLOWED (PREVIOUSLY EXPLAINED BY PRIOR NURSE PER PT). ALSO EXPLAINED THAT IT CAN SLOW HIS BOWELS DOWN WHICH COULD CAUSE MORE DISCOMFORT &/OR POST-OP COMPLICATIONS. PATIENT VOICED UNDERSTANDING. PRIYA DRAINS INTACT W/ GOOD SUCTION & BLOODY DRAINAGE. DRESSING TO ABD INTACT & DRY. HYPOACTIVE BOWEL SOUNDS..DENIES NAUSEA. HEP LOCK INTACT X2 W/ PROTONIX DRIP INFUSING.
--- NOTE | 2019-11-28 05:35 | NUR ---
PATIENT REQUESTING PAIN MEDS FOR 10/15. C/O "HURTS" HYPOACTIVE BOWEL SOUNDS BUT PER PT HE IS PASSING GAS. DRESSING REMAINS D&I TO MIDLINE & PRIYA DRAINS X2 SECURE & PATENT. IS AT BEDSIDE AND PATIENT AGAIN ENCOURAGED TO USE IT. LABS DRAWN VIA ARTLINE W/O DIFFICULTY
--- NOTE | 2019-11-28 06:20 | NUR ---
EYES CLOSED AFTER BEING MEDICATED FOR PAIN. RESP EASY & NONLABORED
[2019-11-28 06:35] LABS: HEMATOCRIT 26.4 % (42.0-52.0); MEAN CORPUSCULAR HGB 19.1 pg (27.0-31.0); MEAN CORPUSCULAR HGB CONC 27.3 g/dl (33.0-37.0); MEAN PLATELET VOLUME 9.8 fl (9.6-12.3); NUCLEATED RED BLOOD CELL 0.5 % (0.0-0.0); PLATELET COUNT AUTOMATED 181 10*3/uL (130-400); RED BLOOD COUNT 3.77 10*6/uL (4.50-5.90); RED CELL DISTRI WIDTH 21.5 % (0-14.5); WHITE BLOOD COUNT 3.9 10*3/uL (4.8-10.8)
[2019-11-28 06:38] LABS: ALBUMIN 1.9 gm/dl (3.1-4.5); CHLORIDE 112 mmol/L (98-107); POTASSIUM 3.9 mmol/L (3.5-5.1); SODIUM 144 mmol/L (136-145)
[2019-11-28 06:42] LABS: ALKALINE PHOSPHATASE 47 U/L (45-117); CREATININE 0.54 mg/dL (0.70-1.30); SGOT/AST 28 IU/L (3-35); SGPT/ALT 14 U/L (12-78); TOTAL PROTEIN 5.5 gm/dL (6.4-8.2)
[2019-11-28 06:43] LABS: BUN 18 mg/dl (7-24)
[2019-11-28 07:08] LABS: TOTAL CELLS COUNTED 100 #CELLS
[2019-11-28 07:09] LABS: BURR CELLS FEW; MICROCYTOSIS SLIGHT; OVALOCYTES FEW; PLATELET SUFFICIENCY NORMAL (NORMAL); SCHISTOCYTES FEW
--- NOTE | 2019-11-28 07:25 | NUR ---
This nurse went to evaluate patient for new skin impairments from surgery. Surgical dressing intact to midline incision. Drains intact at time of assessment. No strikethrough drainage noted at time of assessment. Assisted with dressing change to bilateral knee at this. tolerate activity well and bed in low position call light within reach.
--- NOTE | 2019-11-28 07:43 | NUR ---
DR YAO CALLED WITH LAB RESULTS & FREQUENT ASKING FOR PAIN MEDS..ORDERS RECEIVED - PATIENT IS TO HAVE ICE CHIPS VERY SPARINGLY. MAY HAVE SWABS TO WET MOUTH.
--- NOTE | 2019-11-28 08:00 | NUR ---
PHYSICAL THERAPY Screen recieved, patient admitted with pancreitis, anemia status post repair of perferated ulcer. Patient would likely benefit from PT consult to improve mobility after surgical procedure as medically appropriate for activity per MD. Lorenzo Estrada SPT [facility] PT
--- NOTE | 2019-11-28 08:13 | NUR ---
GIVEN 20CC OF WATER WITH SWABS AND EXPLAINED TO PT WATER IS NOT TO DRINK BUT TO USE TO KEEP MOUTH MOIST WITH SWABS. PT WITHIN 10 MINUTES HAD WATER GONE AND CONTINUED TO ASK FOR MORE ICE/WATER DISPITE HAVING BEEN EXPLAINED SEVERAL TIMES THE DANGERS BEING POST OP WITH MINIMAL BOWEL ACTIVITY.
--- NOTE | 2019-11-28 08:27 | NUR ---
Nursing screen received and chart was reviewed. Patient is a 44 year old male admitted for pancreatitis, aneamia, leukopenia, and ulcers. Surgery consulted. If patient has a decline in ADLs, transfers or functional mobility please send OT orders. Thank you. Qian Tate OTR/L
--- NOTE | 2019-11-28 08:38 | NUR ---
MEDICATED FOR ABDOMINAL PAIN 10/15. FLUID RESTRICTION EXPLAINED AGAIN.
--- NOTE | 2019-11-28 09:24 | NUR ---
PT SLEEPING AFTER MEDICATION
--- NOTE | 2019-11-28 12:08 | NUR ---
ASSESSMENT DONE DURING BATH. MEDICATED WITH DILAUDED & ZOFRAN FOR PAIN AFTER TURNING & MILD UPSET STOMACH. IV started left hand with #22 protective cath after 1 attempts. Site prepped with Chloroprep. Sterile dressing applied. Patient tolerated procedure well. IV infusing at 10cc/hr. NBA DACOSTA
--- NOTE | 2019-11-28 12:54 | NUR ---
DR YAO HERE AND SAW PATIENT - CASE DISCUSSED
--- NOTE | 2019-11-28 15:41 | NUR ---
UNIT #2 PRBC INFUSING, PT RESTING QUITETLY, VS STABLE.
--- NOTE | 2019-11-28 18:10 | NUR ---
MEDICATED WITH 1MG IV DILAUDID FOR 8/10 ABDOMINAL PAIN.
--- NOTE | 2019-11-28 18:37 | NUR ---
ARTERIAL LINE REMOVED PER MD OPDER WITHOUT DIFFICULTY. PRESSURE HELD FOR 5 MINUTES, NO BLEEDING. CLEAN PRESSURE DRESSING APPLIED.
--- NOTE | 2019-11-28 20:19 | NUR ---
1935 RESTING IN BED WITH EYES CLOSED. APPEARS TO BE SLEEPING. DRSG REMOVED OLD ART LINE SITE RAN. NO DISTRESS NOTED. NO C/O'S VOICED AT PRESENT. PULSE OX 97% ON 2L 02 VIA NC. PROTONIX GTT CONT. HEP LOCK INTACT THERESA. ANGELO PATENT AND DRAINING CLEAR YELLOW URINE. MIDLINE ABD INCISION D/I WITH NO VISIBLE DRNG NOTED. BILATERAL PRIYA BULB DRAINS INTACT AND DRAINING SEROSANGUINOUS DRNG. HOB ELEVATED. SIDE RAILS UP X'S 2. CALL LIGHT IN REACH.
--- NOTE | 2019-11-28 20:55 | NUR ---
2055 DILAUDID 1MG IV FOR C/O'S POST -OP ABD PAIN.
--- NOTE | 2019-11-28 20:56 | NUR ---
2055 ZOFRAN IV FOR C/O'S NAUSEA. NO EMESIS NOTED. WILL MONITOR.
--- NOTE | 2019-11-28 21:55 | NUR ---
2154 PAIN MED EFFECTIVE 2155 EARLIER ZOFRAN EFFECTIVE. RESTINGIN BED WATCHING TV.
--- NOTE | 2019-11-28 23:56 | NUR ---
2356 DILAUDID 1MG IV FOR CONT C/O'S POST -OP ABD PAIN. ASKING FOR H20 FREQUENTLY. ALSO TRIED TO GET OOB EARLIER TO GET WATER OUT OF THE BATHROOM. RE-INFORCED MULTIPLE TIMES WITH PT THAT HE IS TO ONLY HAVE ICE CHIPS SPARINGLY.
[2019-11-29] VITALS: BP 125/83
--- NOTE | 2019-11-29 00:56 | NUR ---
0056 EARLIER PAIN MED EFFECTIVE.
--- NOTE | 2019-11-29 02:56 | NUR ---
0256 DILAUDID 1MG IV FOR C/O'S POST -OP ABD PAIN. ZOFRAN IV FOR C/O'S NAUSEA. WILL MONITOR.
--- NOTE | 2019-11-29 03:56 | NUR ---
0356 EARLIER PAIN MED AND ANTI NAUSEA MED EFFECTIVE. RESTING IN BED WITH EYES CLOSED. APPEARS TO BE SLEEPING.
[2019-11-29 04:00] VITALS: BP 133/76
[2019-11-29 05:40] LABS: ALBUMIN 1.7 gm/dl (3.1-4.5); ALKALINE PHOSPHATASE 52 U/L (45-117); BUN 19 mg/dl (7-24); CHLORIDE 115 mmol/L (98-107); CREATININE 0.47 mg/dL (0.70-1.30); LIPASE 827 U/L (73-393); POTASSIUM 4.2 mmol/L (3.5-5.1); SGOT/AST 26 IU/L (3-35); SGPT/ALT 15 U/L (12-78); SODIUM 147 mmol/L (136-145); TOTAL PROTEIN 5.8 gm/dL (6.4-8.2)
[2019-11-29 05:50] LABS: HEMATOCRIT 30.1 % (42.0-52.0); MEAN CELL VOLUME 71.8 fl (80.0-94.0); MEAN CORPUSCULAR HGB 20.8 pg (27.0-31.0); MEAN CORPUSCULAR HGB CONC 28.9 g/dl (33.0-37.0); MEAN PLATELET VOLUME 9.4 fl (9.6-12.3); NUCLEATED RED BLOOD CELL 0.5 % (0.0-0.0); PLATELET COUNT AUTOMATED 160 10*3/uL (130-400); RED BLOOD COUNT 4.19 10*6/uL (4.50-5.90); RED CELL DISTRI WIDTH 20.9 % (0-14.5)
--- NOTE | 2019-11-29 06:00 | NUR ---
0600 DILAUDID IV FOR PAIN. OFFERED NORCO. DID NOT WANT. NO DISTRESS NOTED. PULSE OX 93% WITH 02 INTACT. PRIYA BULB DRAINS INTACT. ANGELO PATENT. CONDITION GUARDED.
[2019-11-29 06:48] LABS: MICROCYTOSIS SLIGHT; ROULEAUX SLIGHT; TOTAL CELLS COUNTED 100 #CELLS
[2019-11-29 06:49] LABS: PLATELET SUFFICIENCY NORMAL (NORMAL)
--- NOTE | 2019-11-29 06:57 | NUR ---
EARLER DILAUDID EFFECTIVE.
--- NOTE | 2019-11-29 07:34 | NUR ---
Shift chart check completed.
[2019-11-29 08:00] VITALS: BP 131/71
--- NOTE | 2019-11-29 08:30 | NUR ---
MEDICATED WITH DILAUDED & ZOFRAN FOR C/O PAIN 09/14. STOMACH UPSET BECAUSE "YOU MADE ME GET UP IN THE CHAIR", PRIYA DRAINS IN PLACE
--- NOTE | 2019-11-29 10:16 | NUR ---
Nutritional Support Services Note: Pt states pain is improving. Remains NPO at this time with small amounts of ice chips. Perforated ulcer. Will continue to follow. Advance po intake as able. Vika Carl Rdn Ld
[2019-11-29 12:00] VITALS: BP 128/79
--- NOTE | 2019-11-29 12:14 | NUR ---
MEDICATED WITH DILAUDED FOR C/O PAIN 11/14 WHILE SITTING THERE QUIETLY WATCHING TV..PER THE PATIENT "IT IS TIME AND I AM ALLOWED IT SO I WANT IT" FLUID RESTRICTION AGAIN REINFORCED
--- NOTE | 2019-11-29 13:00 | NUR ---
DISCUSSED HOME HEALTH AGAIN WITH PT AFTER DISCHARGE BUT PT DECLINES. STATES HE WILL BE FINE AT HOME WITH WIFES HELP. WILL CONTINUE TO FOLLOW.
--- NOTE | 2019-11-29 14:49 | NUR ---
DR YAO CALLED AFTER THE PATIENT STAARTED WITH A SINUS ARRYTHMIA. LEADS ADJUSTED TO ENSURE AND IT CONTINUED..EKG ORDERED. PAIN MEDS & LABS DISCUSSED..
--- NOTE | 2019-11-29 15:06 | NUR ---
JULIÁNAUDED & ZOTERESA GIVEN FOR PAIN & NAUSEA.. EXPLAINED THAT A NEW PAIN MEDICATION WAS BEING ORDERED D/T HEART ARRYTHMIA..
[2019-11-29 16:00] VITALS: BP 139/80
--- NOTE | 2019-11-29 19:44 | NUR ---
MOVED TO 427 - REPORT GIVEBN
[2019-11-29 20:00] VITALS: BP 129/83
--- NOTE | 2019-11-29 21:02 | NUR ---
ENTERED PT'S ROOM TO ASSESS PT. BOTH PRIYA BULBS UNDER PT'S BUTTOCKS. PROTONIX IV TUBING DISCONNECTED. O2 TUBING WRAPPED AROUND PT'S PENIS. F/C TUBING WRAPPED AROUND PT'S LEG. ALL LINES STRAIGHTENED AND RECONNECTED. PT REFUSING O2 AT THIS TIME. RT PRIYA DRAINING SS FLUID AND LT PRIYA DRAINING YL SS FLUID. F/C DRAINING DARK YELLOW URINE. MID STERNAL AND BILATERAL PRIYA DRSGS DRY/INTACT. SM AMOUNT OF WATER GIVEN TO PT FOR PO MEDS. SM AMOUNT OF ICE CHIPS GIVEN TO PT AT THIS TIME. BSX4 HYPO. ABD SOFT/TENDER/ND. PT C/O RT SIDE/RLQ PAIN 01/15. MEDICATED W/DILAUDID AND RESTORIL TO HELP PROMOTE SLEEP. PT REMINDED OF NPO STATUS AND NEED FOR STOOL SAMPLE. CALL LIGHT AND PHONE IN REACH. WILL MONITOR.
--- NOTE | 2019-11-29 22:00 | NUR ---
PT RESTING QUIETLY IN BED W/EYES CLOSED. NO S/S OF DISTRESS NOTED. PRN MEDS EFFECTIVE.
[2019-11-30] VITALS: BP 126/80
--- NOTE | 2019-11-30 02:55 | NUR ---
PT MEDICATED W/DILAUDID IVP FOR C/O RLQ PAIN. PT AWAKE IN BED WATCHING TV. PT ENCOURAGED TO SLEEP AND ADVISED NO FURTHER PAIN MEDICINE IS AVAILABLE UNTIL MORNING. CALL LIGHT IN REACH.
--- NOTE | 2019-11-30 06:30 | NUR ---
PT'S PULSE OX 78% ON RA. O2 APPLIED VIA NC AT 3L. SAT INCREASED TO 86%. PT ENCOURAGED TO DEEP BREATH THROUGH NOSE AND EXHALE THROUGH MOUTH. WILL MONITOR.
[2019-11-30 07:20] LABS: HEMATOCRIT 31.3 % (42.0-52.0); MEAN CORPUSCULAR HGB 20.5 pg (27.0-31.0); MEAN CORPUSCULAR HGB CONC 28.1 g/dl (33.0-37.0); MEAN PLATELET VOLUME 9.9 fl (9.6-12.3); PLATELET COUNT AUTOMATED 186 10*3/uL (130-400); RED BLOOD COUNT 4.29 10*6/uL (4.50-5.90); RED CELL DISTRI WIDTH 21.8 % (0-14.5)
[2019-11-30 07:38] LABS: ALBUMIN 1.7 gm/dl (3.1-4.5); BUN 23 mg/dl (7-24); CHLORIDE 114 mmol/L (98-107); CREATININE 0.65 mg/dL (0.70-1.30); LIPASE 1048 U/L (73-393); POTASSIUM 3.8 mmol/L (3.5-5.1); SGOT/AST 19 IU/L (3-35); SGPT/ALT 13 U/L (12-78); SODIUM 151 mmol/L (136-145)
[2019-11-30 07:40] LABS: ALKALINE PHOSPHATASE 57 U/L (45-117); TOTAL PROTEIN 6.1 gm/dL (6.4-8.2)
[2019-11-30 07:50] LABS: TOTAL CELLS COUNTED 100 #CELLS
[2019-11-30 07:51] LABS: MICROCYTOSIS SLIGHT; OVALOCYTES FEW; PLATELET SUFFICIENCY NORMAL (NORMAL); POLYCHROMASIA SLIGHT; SCHISTOCYTES FEW
[2019-11-30 08:00] VITALS: BP 136/78
--- NOTE | 2019-11-30 08:45 | NUR ---
PRN DILAUDID EFFECTIVE PER PT.
[2019-11-30 12:00] VITALS: BP 130/78
--- NOTE | 2019-11-30 12:09 | NUR ---
8:10am dilaudid 1mg IV per order for pain in R side abdomen as 8/10. Hypoactive bowel sounds, some distention, midline incision with kita intact. PRIYA on left and right intact with small amount serousanguineous drainage. States is passing flatus. 8:30am rates pain as a 5 states down 3 notches. Resting with eyes closed on entering room. States unable to nap.
--- NOTE | 2019-11-30 13:20 | NUR ---
PT MEDICATED WITH PRN DILAUDID FOR C/O ABDOMINAL PAIN. PT RATES PAIN 12/15. WILL MONITOR.
--- NOTE | 2019-11-30 14:00 | NUR ---
PRN DILAUDID EFECTIVE PER PT.
--- NOTE | 2019-11-30 15:39 | NUR ---
1200: Magana catheterin tact, bag containing 800 mL of clear dark ricardo urine. Catheter removed, patient tolerated well. Patient given bedside urinal and instructed to collect further urine in. Michelle BENJAMIN, OVCT
[2019-11-30 16:00] VITALS: BP 130/75
--- NOTE | 2019-11-30 16:13 | NUR ---
Patient able to relieve himself into bedside urinal. Clear dark ricardo urine measuring 200cc. Michelle Acuna - , OVCT
--- NOTE | 2019-11-30 17:04 | NUR ---
1650 Pt given dilaudid 1mg IV for pain rated 10/10. Patient describes pain as sharp pain, RUQ and RLQ into LLQ. Patients bowel sounds remain hypoactive. Abdomen softly distended but states he is still passing flatus. Michelle Acuna - SN, OVCT
--- NOTE | 2019-11-30 17:30 | NUR ---
PRN DILAUDID EFFECTIVE PER PT.
--- NOTE | 2019-11-30 19:30 | NUR ---
PT RESTING IN BED. RESPS EASY AND NON LABORED. VSS. 3L OXYGEN INTACT. POC DISCUSSED W PT. BILAT PRIYA DRAINS INTACT W MIN BLOODY DRAINAGE-NO S/S INFECTION @ INSERTION. KAMAR TO MIDLINE-DRESSING C/D/I. HYPOACTIVE BS NOTED-PT STATES HE IS PASSING FLATUS. C/O CONSTANT ABD PAIN. PPN/LIPIDS/PROTONIX INFUSING W/O INCIDENT. WILL CONTINUE TO MONITOR. CALL LIGHT WITHIN REACH. PT TEACHING REINFORCED REGARDING INCENTIVE SPIROMETER.
--- NOTE | 2019-11-30 19:45 | NUR ---
PT REQUESTING DIFFERENT SLEEPING PILL. PER DR SANTORO PT CAN HAVE VISTARIL 50MG PO HS INSTEAD OF RESTORIL. ORDER VERIFIED AND REPEATED BACK.
[2019-11-30 20:00] VITALS: BP 147/83
--- NOTE | 2019-11-30 20:00 | NUR ---
CALLED INTO PTS ROOM BY DIAMOND MERCHANT. PT UNHOOKED HIMSELF FROM IV PUMPS-TPN/LIPIDS/PROTONIX FOUND TO BE SPILLING ONTO THE FLOOR. EXPLAINED TO PT THAT HE CAN NOT UNHOOK HIM SELF FROM IV PUMPS AND EDUCATED HIM ON THE RATIONALE FOR EACH MEDICATION. PT VERBALIZED UNDERSTANDING. STATES HE COULD NOT USE THE RESTROOM WHILE HE WAS HOOKED UP TO IV POLE. EXPLAINED TO HIM TO USE CALL LIGHT AND THE NURSE WOULD ASSIST HIM. WILL CONTINUE TO MONITOR. CALL LIGHT WITHIN REACH.
--- NOTE | 2019-11-30 21:00 | NUR ---
INTO CHECK ON PT. AGAIN UNHOOKED IV MEDICATIONS. PULLED L HAND IV SITE OUT. RE-EDUCATED PT AGAIN REGARDING THIS. VERBAILZIED UNDERSTANDING. PULLED OFF HEART MONITOR AND ABD DRESSING. SMALL AMOUNTS OF BLOODY DRAINAGE NOTED. NEW 22 G IV STARTED IN THE L ARM-PREPPED W CHLOAPREP. NEW DSD APPLIED TO ABD-SITE APPEARS FREE FROM INFECTION. REAPPLIED HEART MONITOR. PT A/O X3. RESPS EASY AND NON LABORED. NO S/S OF DISTRESS NOTED. VSS. BED ALRM ON . PT CONTINUES TO REFUSE OXYGEN-TAKES OFF SOON ITS PLACED. CALL LIGHT WITHIN REACH. WLL CONTINUE TO MONITOR. LIPIDS/TPN/PROTONIX INFUSING W/O INCIDENT AT THIS TIME.
--- NOTE | 2019-11-30 21:40 | NUR ---
CALLED TO ROOM BY MAJOR GIFTS OFFICER. PT SPO2 IN THE 70'S ON ROOM AIR. EXPLAINED TO PT HE NEEDED TO PUT OXYGEN ON. PT AGREEABLE. ONES PLACED OXYGEN TITRATED UP TO 8L NASAL CANNULA TO MAINTAIN SPO2 OF 92%. PT A/O X3. RESPS EASY AND NON LABORED. NO S/S OF DISTRESS. PT DENIES SOB AND THEY NEED FOR OXYGEN USE. BED ALARM ON. CALL LIGHT WITHIN REACH. MAJOR GIFTS OFFICER IN ROOM WITH PT. WILL CALL DR SANTORO AT THIS TIME.
--- NOTE | 2019-11-30 21:42 | NUR ---
DR SANTORO NOTIFIED OF PTS SITUATION. STATES HE WILL BE UP TO THE FLOOR TO SEE THE PT.
--- NOTE | 2019-11-30 21:58 | NUR ---
PT C/O 02/14 ABD PAIN R/T SX SITE AND REQUESTING SLEEPING PILL. MEDICATED PER ORDER. WILL MONITOR FOR RELIEF. VOICES NO OTHER CONCERNS AT THIS TIME. RESPS EASY AND NON LABORED. VSS. CALL LIGHT WITHIN REACH. BED ALRM ON
--- NOTE | 2019-11-30 22:50 | NUR ---
MEDICATIONS EFFECTIVE PER PT
[2019-12-01] VITALS: BP 172/77
--- NOTE | 2019-12-01 00:15 | NUR ---
INTO CHECK ON PT. RESTING IN BED. VOICES NO CONCERNS. RESPS EASY ON 8L HFNC. VSS. CALLED FLOOR SERVICE TO COME CLEAN BATHROOM. WATER NOTED ALL OVER BATHROOM FLOOR. ASKED PT WHAT HAPPENED-STATES HE DOES NOT KNOW. HIGH SUSPICSION THAT PT WAS DRINKING WATER OUT OF FAUCET IN BATHROOM. HAS REPEATEDLY ASKED MULTIPLE STAFF MEMBERS FOR SOMETHING TO DRINK. CONTINUED EXPLAINATION OF NPO STATUS. WILL CONTINUE TO MONITOR. BED ALRM ON. CALL LIGHT WITHIN REACH.
[2019-12-01 00:18] LABS: ABG BASE EXCESS 5.3 mmol/L (-2.0-2.0); ARTERIAL BLOOD GAS PH 7.484 (7.35-7.45)
--- NOTE | 2019-12-01 00:46 | NUR ---
PT CONTINUES TO REST IN BED. ON 8L HFNC AT THIS TIME. NON LABORED RESPS. DENIES SOB. STATES HE FEELS JUST FINE. A/O X3. BED ALARM ON. CALL LIGHT WITHIN REACH. WILL CONTINUE TO MONITOR.
[2019-12-01 01:00] VITALS: BP 132/72
--- NOTE | 2019-12-01 01:00 | NUR ---
DR SANTORO MADE AWARE OF REPEAT VITALS. AWAITING KUB. 8L HFNC INTACT-SPO2 94%. PT STILL VOICES NO CONCERNS. A/O X3. VSS. RESPS EASY AND NON LABORED. WILL CONTINUE TO MONITOR. BED ALRM HYDRAULIC PLUMBER LIGHT WITHIN REACH
--- NOTE | 2019-12-01 02:06 | NUR ---
CALLED [facility] [facility] TO ASK IF KUWillie COULD READ PER DR SANTORO. STATE THEY WILL LOOK AT IT.
--- NOTE | 2019-12-01 02:20 | NUR ---
PT SET OFF BED ALARM. STATES HE WANTS SOMETHING TO DRINK. EXPLAINED TO HIM THAT HE IS NPO AND THAT WE ARE WAITING ON HIS SCANS TO COME BACK. VERBALIZED UNDERSTANDING. 8L HFNC INTACT-SPO2 94%. RESPS EASY AND NON LABORED. A/O X3. WILL CONTINUE TO MONITOR. BED ALARM ON. CALL LIGHT WITHN REACH.
--- NOTE | 2019-12-01 02:30 | NUR ---
PAIN MEDICATION EFFECTIVE PER PT
--- NOTE | 2019-12-01 02:31 | NUR ---
PT C/O 10 STABBING/GRABBING ABD PAIN. MEDICATED PER ORDER. WILL MONITOR FOR RELIEF. VOICES NO OTHER CONCERNS AT THIS TIME. RESPS EASY AND NON LABORED. 8L HFNC INTACT. PT NOT DIAPHORETIC. STATES HE IS FINE AND WANTS TO GO TO SLEEP. WILL CONTINUE TO MONITOR. BED ALARM ON. CALL LIGHT WITHIN REACH.
--- NOTE | 2019-12-01 02:57 | NUR ---
CALLED [facility] AGAIN TO ASK ABOUT KUD AND CXR RESULTS. THEY STATE THE PT IS MOVING UP ON THE LIST AND WILL BE READ SOON. EXPLAINED SITUATION/CIRCIMSTANCE. WILL AWAIT RESULTS.
--- NOTE | 2019-12-01 02:58 | NUR ---
PT SET OFF BED ALARM REQUESTING IV PAIN MEDICATION. EXPLAINED TO PT THAT HE JUST HAD IT AT 0231 AND IT WOULD NOT BE AVAILABLE UNTIL 0531. PT VERBAILIZED UNDERSTANDING. ASSISTED BACK TO BED. BED ALARM ON. CALL LIGHT WITHIN REACH.
--- NOTE | 2019-12-01 03:30 | NUR ---
PAIN MEDICATION EFFECTIVE PER PT
--- NOTE | 2019-12-01 03:45 | NUR ---
DR SANTORO NOTIFIED THAT PTS KUB IS BACK. NO NEW ORDERS AT THIS TIME.
[2019-12-01 04:00] VITALS: BP 128/70
--- NOTE | 2019-12-01 04:09 | NUR ---
DR SANTORO CALLED. STATES TO UPDATED DR YAO ON PTS CONDITION. PER DR YAO PUT IN ORDER FOR STAT CT ABD/PELVIS WITH CONTRAST.
--- NOTE | 2019-12-01 04:30 | NUR ---
PT TAKEN OFF FLOOR TO CT
--- NOTE | 2019-12-01 04:56 | NUR ---
PT BACK FROM CT- STATING NURSE PROMISED HIM PAIN MEDICATION WHEN HE GOT BACK. EXPLAINED TO PT THAT PAIN MEDICATION IS NOT DUE AT THIS TIME. 8L HFNC INTACT. A/O. RESPS EASY AND NON LABORED. BED ALARM INTACT. CALL LIGHT WITHIN REACH.
--- NOTE | 2019-12-01 06:22 | NUR ---
CALLED [facility] REGARDING NOT HAVING CXR REPORT FROM LAST NIGHT. VALDEMAR STATES SHE WILL LOOK INTO IT.
[2019-12-01 06:35] LABS: HEMATOCRIT 33.8 % (42.0-52.0); MEAN CELL VOLUME 71.9 fl (80.0-94.0); MEAN CORPUSCULAR HGB 20.9 pg (27.0-31.0); MEAN PLATELET VOLUME 9.7 fl (9.6-12.3); NUCLEATED RED BLOOD CELL 0.1 10*3/uL (0.0-0.0); NUCLEATED RED BLOOD CELL 0.8 % (0.0-0.0); PLATELET COUNT AUTOMATED 230 10*3/uL (130-400); RED CELL DISTRI WIDTH 22.9 % (0-14.5); WHITE BLOOD COUNT 7.2 10*3/uL (4.8-10.8)
[2019-12-01 06:43] LABS: ALBUMIN 1.7 gm/dl (3.1-4.5); BUN 18 mg/dl (7-24); CHLORIDE 110 mmol/L (98-107); CHOLESTEROL 92 mg/dL (<200); CREATININE 0.63 mg/dL (0.70-1.30); LIPASE 757 U/L (73-393); POTASSIUM 3.6 mmol/L (3.5-5.1); SGOT/AST 15 IU/L (3-35); SGPT/ALT 10 U/L (12-78); SODIUM 146 mmol/L (136-145); TOTAL PROTEIN 5.5 gm/dL (6.4-8.2); TRIGLYCERIDES 99 mg/dl (<150); VLDL CHOLESTEROL 20 mg/dL (6-40)
[2019-12-01 06:44] LABS: ALKALINE PHOSPHATASE 56 U/L (45-117); HDL CHOLESTEROL 16 mg/dl (40-60); LDL CHOLESTEROL 56 mg/dL (9-159)
[2019-12-01 07:35] LABS: BURR CELLS FEW; MICROCYTOSIS SLIGHT; OVALOCYTES FEW; PLASMA CELL 1 % (0-0); PLATELET SUFFICIENCY NORMAL (NORMAL); TOTAL CELLS COUNTED 100 #CELLS
[2019-12-01 07:38] LABS: SCHISTOCYTES FEW
--- NOTE | 2019-12-01 09:18 | NUR ---
PT REFUSING LIFE SKILLS INSTRUCTOR AT THIS TIME.
[2019-12-01 12:00] VITALS: BP 132/68
[2019-12-01 16:00] VITALS: BP 131/73
[2019-12-01 20:00] VITALS: BP 139/69
--- NOTE | 2019-12-01 20:27 | NUR ---
PATIENT MEDICATED WITH DILAUDID FOR COMPLAINTS OF ABDOMINAL AND INCISIONAL PAIN. WILL MONITOR FOR EFFECTIVENESS. CALL LIGHT IN REACH.
--- NOTE | 2019-12-01 21:17 | NUR ---
PATIENT MEDICATED WITH NORCO AT THIS TIME D/T PATIENT SAID ALL THE DILAUDID LEAKED OUT OF HIS IV. IV PATENT WITH NO SIGNS OF LEAKAGE. WILL CONTINUE TO MONITOR.
--- NOTE | 2019-12-01 22:56 | NUR ---
JOVANY TOLD THIS NURSE THAT PATIENT PULLED PERIPHERAL IV OUT OF LEFT ARM. NEW 22G INSERTED INTO RIGHT HAND ON 2ND ATTEMPT WITHOUT DIFFICULTY WITH GOOD BLOOD RETURN. PATIENT TOLERATED WELL. IV ZOSYN RESTARTED AT THIS TIME. WILL CONTINUE TO MONITOR. CALL LIGHT IN REACH.
--- NOTE | 2019-12-01 23:53 | NUR ---
MEDICATED WITH DILAUDID FOR COMPLAINTS OF ABDOMINAL PAIN. WILL CONTINUE TO MONITOR.
[2019-12-02] VITALS: BP 131/78
--- NOTE | 2019-12-02 00:33 | NUR ---
PRN DILAUDID AND NORCO EFFECTIVE. RESTING IN BED WITH EYES CLOSED. NO SIGNS OR SYMPTOMS OF DISTRESS NOTED. CALL LIGHT IN REACH.
--- NOTE | 2019-12-02 04:08 | NUR ---
PATIENT REFUSES TO WEAR PATTERN VAULT CLERK.
--- NOTE | 2019-12-02 05:58 | NUR ---
MEDICATED WITH DILAUDID FOR COMPLAINTS OF ABDOMINAL PAIN. WILL CONTINUE TO MONITOR.
[2019-12-02 06:35] LABS: HEMATOCRIT 34.5 % (42.0-52.0); MEAN CELL VOLUME 72.6 fl (80.0-94.0); MEAN CORPUSCULAR HGB 20.4 pg (27.0-31.0); MEAN CORPUSCULAR HGB CONC 28.1 g/dl (33.0-37.0); MEAN PLATELET VOLUME 9.3 fl (9.6-12.3); NUCLEATED RED BLOOD CELL 0.1 10*3/uL (0.0-0.0); PLATELET COUNT AUTOMATED 247 10*3/uL (130-400); RED BLOOD COUNT 4.75 10*6/uL (4.50-5.90); RED CELL DISTRI WIDTH 23.9 % (0-14.5); WHITE BLOOD COUNT 8.3 10*3/uL (4.8-10.8)
[2019-12-02 06:53] LABS: ALBUMIN 1.5 gm/dl (3.1-4.5); BUN 15 mg/dl (7-24); CHLORIDE 105 mmol/L (98-107); CREATININE 0.49 mg/dL (0.70-1.30); POTASSIUM 3.7 mmol/L (3.5-5.1); SGOT/AST 14 IU/L (3-35); SGPT/ALT 8 U/L (12-78); SODIUM 141 mmol/L (136-145); TOTAL PROTEIN 5.8 gm/dL (6.4-8.2)
[2019-12-02 06:56] LABS: ALKALINE PHOSPHATASE 62 U/L (45-117); LIPASE 1437 U/L (73-393)
[2019-12-02 07:19] LABS: MICROCYTOSIS SLIGHT; POLYCHROMASIA SLIGHT; TOTAL CELLS COUNTED 100 #CELLS
[2019-12-02 07:20] LABS: BURR CELLS FEW; OVALOCYTES FEW; PLATELET SUFFICIENCY NORMAL (NORMAL); SCHISTOCYTES FEW
--- NOTE | 2019-12-02 07:39 | NUR ---
LAURA TATE [id number] Please refer to the physician's history and physical for past medical history, comorbid conditions, and allergies. Diagnosis: ULCER ANEMIA PANCREATITIS Darryl Score: 18,AT RISK WOUND DESCRIPTIONS: Wound Number: 1 right knee intact scabbed area noted with scar tissue surrounding. No drainage at time of assessment. Wound Number: 2 left knee intact scabbed area noted with scar tissue surrounding. No drainage at time of assessment. Wound Number: 3 Surgical dressing intact to midline incision. Drains intact at time of assessment. No strikethrough drainage noted at time of assessment. Surface the patient is resting on: Isoflex SKIN PREVENTION RECOMMENDATION: 1. Pressure redistribution support surface as appropriate 2. Elevate heels 3. Remove boots/TEDS every shift and reapply 4. Head of bed 30 degrees as tolerated 5. Assess nutrition and hydration 6. Manage moisture 7. Avoid the use of containment devices while in bed 8. Use absorptive products on surfaces limit layers of linens on bed 9. Turn and reposition every 1-2 hours in bed and every 1 hour in chair as tolerated 10. Weight shifts every 15 minutes while up in chair 11. Offloading with pillows or device to keep heels elevated off bed 12. Monitor skin at least every shift 13. Inspect under medical devices twice a day WOUND TREATMENT RECOMMENDATIONS: Clease right and left knee with soap and water and apply aquaphor bid. Dr. Hodge is following abdominal incsion since he performed the surgical procedure.
--- NOTE | 2019-12-02 07:44 | NUR ---
ROSEMARIE, PHARMACIST, STATES ZOSYN AND PROTONIX GTTS COMPATIBLE AT CURRENT RATES.
[2019-12-02 08:00] VITALS: BP 140/78
--- NOTE | 2019-12-02 08:00 | NUR ---
PT REFUSING TO WHERE SQE AND DR SUMNER STATES TO MAKE PT MEDSURG IF HE REFUSES.
--- NOTE | 2019-12-02 08:50 | NUR ---
PHONED IN AND UPDATED ON POC/PT'S CONDITION.
--- NOTE | 2019-12-02 09:00 | NUR ---
case management visits with patient, discussed discharge plan, he stated he would be returning home with his mom when discharged. discussed with him the possibly need for ivs and oxygen and rehab, educated him on a short term retirement for rehab or possibly an LTAC, he was not sure he wanted to go any where but home, but would think about going somewhere, case management/digital media planner following
--- NOTE | 2019-12-02 09:30 | NUR ---
O2 TITRATED TO 6LPM VIA HFNC.
--- NOTE | 2019-12-02 10:30 | NUR ---
O2 TITRATED TO 4LPM VIA NC. SPO2 REMAINS AT 96%.
--- NOTE | 2019-12-02 10:41 | NUR ---
Dr. Phipps notified of wound care recommendations.
--- NOTE | 2019-12-02 10:46 | NUR ---
MEDICATED WITH IV DILAUDID ORDERED PER PT REQUEST FOR C/O PAIN TO RIGHT UPPER FLANK RATED 8/10 AND DESCRIBED SHARP.
--- NOTE | 2019-12-02 11:04 | NUR ---
MEDICATED WITH IV ZOFRAN ORDERED PER PT REQUEST FOR C/O NAUSEA.
[2019-12-02 12:00] VITALS: BP 123/69
--- NOTE | 2019-12-02 12:00 | NUR ---
MEDICATION EFFECTIVE FOR PAIN AND NAUSEA.
--- NOTE | 2019-12-02 15:00 | NUR ---
DR YAO AWARE OF TEMP OF 100.3.
[2019-12-02 16:00] VITALS: BP 146/76
--- NOTE | 2019-12-02 18:18 | NUR ---
MEDICATED WITH IV DILAUDID ORDERED PER PT REQUEST FOR C/O PAIN TO RIGHT FLANK RATED 10/10.
[2019-12-02 20:00] VITALS: BP 119/59
--- NOTE | 2019-12-02 23:06 | NUR ---
PT FIO2 WEANED FROM 4L TO 3LNC. SpO2 IS 94%.
[2019-12-03] VITALS: BP 122/64
--- NOTE | 2019-12-03 00:51 | NUR ---
PATIENT MEDICATED WITH DILAUDID FOR COMPLAINTS OF RIGHT FLANK PAIN. WILL MONITOR FOR EFFECTIVENESS. CALL LIGHT IN REACH.
--- NOTE | 2019-12-03 01:30 | NUR ---
DILAUDID EFFECTIVE. PATIENT IN BED SLEEPING. NO SIGNS OR SYMPTOMS OF DISTRESS NOTED. CALL LIGHT IN REACH.
--- NOTE | 2019-12-03 04:13 | NUR ---
PATIENT MEDICATED WITH DILAUDID FOR COMPLAINTS OF RIGHT FLANK PAIN. WILL CONTINUE TO MONITOR.
[2019-12-03 06:45] LABS: HEMATOCRIT 32.3 % (42.0-52.0); MEAN CELL VOLUME 72.6 fl (80.0-94.0); MEAN CORPUSCULAR HGB 20.4 pg (27.0-31.0); MEAN CORPUSCULAR HGB CONC 28.2 g/dl (33.0-37.0); MEAN PLATELET VOLUME 10.7 fl (9.6-12.3); NUCLEATED RED BLOOD CELL 0.5 % (0.0-0.0); PLATELET COUNT AUTOMATED 312 10*3/uL (130-400); RED BLOOD COUNT 4.45 10*6/uL (4.50-5.90); WHITE BLOOD COUNT 7.7 10*3/uL (4.8-10.8)
[2019-12-03 07:20] LABS: BUN 18 mg/dl (7-24); CHLORIDE 104 mmol/L (98-107); CREATININE 0.59 mg/dL (0.70-1.30); POTASSIUM 3.9 mmol/L (3.5-5.1); SODIUM 140 mmol/L (136-145)
[2019-12-03 07:25] LABS: LIPASE 1202 U/L (73-393)
--- NOTE | 2019-12-03 07:37 | NUR ---
Medicated for c/o pain 02/14.
[2019-12-03 07:44] LABS: ATYPICAL LYMPHS 1 % (0-0); MICROCYTOSIS SLIGHT; PLATELET SUFFICIENCY NORMAL (NORMAL); TOTAL CELLS COUNTED 100 #CELLS
[2019-12-03 08:00] VITALS: BP 133/68
--- NOTE | 2019-12-03 08:30 | NUR ---
NO COMPLAINTS OF PAIN AT THIS TIME. DILAUDID EFFECTIVE.
--- NOTE | 2019-12-03 09:00 | NUR ---
case management visits with patient, again discussed a discharge plan including a short term senior care, ltac and VNA. educated patient on what each one offered, he stated he didn't want to go to a SNF or Ltac, but at this time is agreeable to VNA, given choice of companies he chose [facility], case management will continue to monitor patient's condition and will discuss SNF or Ltac with patient if needed
[2019-12-03 12:00] VITALS: BP 136/69
--- NOTE | 2019-12-03 14:04 | NUR ---
DILAUDID 1MG IV GIVEN PER REQUEST FOR ABDOMINAL PAIN.
--- NOTE | 2019-12-03 15:00 | NUR ---
NO COMPLAINTS OF PAIN AT THIS TIME. DILAUDID EFFECTIVE.
[2019-12-03 16:00] VITALS: BP 155/62
--- NOTE | 2019-12-03 17:17 | NUR ---
DILAUIDID 1MG GIVEN PER PATIENT REQUEST FOR ABDOMINAL PAIN.
--- NOTE | 2019-12-03 18:15 | NUR ---
DILAUDID EFFECTIVE FOR PAIN.
[2019-12-03 20:00] VITALS: BP 123/62
--- NOTE | 2019-12-03 20:33 | NUR ---
PATIENT MEDICATED WITH DILAUDID FOR COMPLAINTS OF ABDOMINAL PAIN. WILL MONITOR FOR EFFECTIVENESS.
--- NOTE | 2019-12-03 21:00 | NUR ---
PATIENT ASKING FOR DILAUDID AGAIN. TOLD HIM I JUST GAVE IT TO HIM. HE STATED " OH I FORGOT". PATIENT SHOWS NO SIGNS OR SYMPTOMS OF PAIN. WILL CONTINUE TO MONITOR.
--- NOTE | 2019-12-03 23:45 | NUR ---
MEDICATED WITH DILAUDID FOR ABDOMINAL PAIN.
[2019-12-04] VITALS: BP 123/62
--- NOTE | 2019-12-04 03:18 | NUR ---
MEDICATED WITH DILAUDID FOR PAIN.
--- NOTE | 2019-12-04 06:46 | NUR ---
MEDICATED WITH DILAUDID.
--- NOTE | 2019-12-04 07:00 | NUR ---
ARRIVED ON SHIFT, REPORT RECEIVED FROM OFFGOING NURSE, ASSUMED CARE OF PATIENT.
--- NOTE | 2019-12-04 07:30 | NUR ---
INTRODUCED SELF TO PATIENT, BED IN LOW POSITION WITH WHEELLOCKS ENGAGED, SIDE RAILS UP X 2 FOR TURNING AND REPOSITIONING, CALL LIGHT WITHIN REACH, NO NEEDS VOICED ATB THIS TIME.
[2019-12-04 08:00] VITALS: BP 129/68
--- NOTE | 2019-12-04 09:00 | NUR ---
case management visits with patient, patient not feeling well, continues with TPN and npo status, patient scheduled for testing tomorrow, discharge plan undecided at this time
[2019-12-04 09:33] LABS: ALBUMIN 1.3 gm/dl (3.1-4.5); ALKALINE PHOSPHATASE 57 U/L (45-117); BUN 14 mg/dl (7-24); CHLORIDE 103 mmol/L (98-107); CREATININE 0.49 mg/dL (0.70-1.30); LIPASE 1155 U/L (73-393); POTASSIUM 4.2 mmol/L (3.5-5.1); SGOT/AST 18 IU/L (3-35); SGPT/ALT 9 U/L (12-78); SODIUM 136 mmol/L (136-145); TOTAL PROTEIN 5.9 gm/dL (6.4-8.2)
[2019-12-04 09:38] LABS: HEMATOCRIT 30.6 % (42.0-52.0); MEAN CELL VOLUME 71.5 fl (80.0-94.0); MEAN CORPUSCULAR HGB 20.6 pg (27.0-31.0); MEAN CORPUSCULAR HGB CONC 28.8 g/dl (33.0-37.0); MEAN PLATELET VOLUME 10.4 fl (9.6-12.3); PLATELET COUNT AUTOMATED 304 10*3/uL (130-400); RED BLOOD COUNT 4.28 10*6/uL (4.50-5.90); RED CELL DISTRI WIDTH 24.3 % (0-14.5); WHITE BLOOD COUNT 10.6 10*3/uL (4.8-10.8)
--- NOTE | 2019-12-04 09:55 | NUR ---
PATIENT C/O OF ABDOMINAL PAIN RATES PAIN 10/10, DESCIBES SHARP STABBING PAIN, MEDICATED WITH IV DILAUDID ORDERED, WHITE BOARD UPDATED.
[2019-12-04 10:00] LABS: BASOPHILS 1 % (0-1); MICROCYTOSIS SLIGHT; OVALOCYTES FEW; PLASMA CELL 1 % (0-0); PLATELET SUFFICIENCY NORMAL (NORMAL); POLYCHROMASIA SLIGHT; SCHISTOCYTES FEW; TARGET CELLS FEW; TOTAL CELLS COUNTED 100 #CELLS
--- NOTE | 2019-12-04 10:55 | NUR ---
PATIENT REPORTS MINIMAL IMPROVEMENT FROM DILAUDID GIVEN X 1 HOUR AGO, NOTIFIED DR. YAO, HE VERSED HE WILL REMOVE SOME LOWER KAMAR TOMORROW.
[2019-12-04 12:00] VITALS: BP 124/59
--- NOTE | 2019-12-04 12:51 | NUR ---
OT NOTE Occupational therapy order received and chart reviewed. Patient supine in bed declining an OT evaluation at this time. Patient stating he will not work with therapy until he gets pain medication. Spoke with nursing about patient requesting pain meds. Will return at a later time for completion of an OT eval. Thank you. Kamilla Ma, OTR/L
--- NOTE | 2019-12-04 12:54 | NUR ---
PHYSICAL THERAPY Evaluation attempted at 12:50, patient declined stating he needed his pain medication. Nsg is aware, plan to return to attempt PT evaluation at a later time. Thank you. Lorenzo Estrada SPT [facility]
--- NOTE | 2019-12-04 13:15 | NUR ---
CALLED TO PATIENTS ROOM, PATIENT HAVING A LARGE AMOUNT OF FOUL SMELLING DRAINAGE FROM ABDOMINAL WOUND, CALL PLACED TO DR. YAO, LEFT VOIUMAIL, CALL PLACED TO HOSPITALIST LINE TO ADVISE OF BLEEDING AND THAT I COULD NOT REACH DR. YAO, SPOKE TO DR. SUMNER , SHE VERSED SHE WILL BE UP.
--- NOTE | 2019-12-04 13:19 | NUR ---
PT GIVEN PRN DILAUDID FOR PAIN. WILL CONTINUE TO MONITOR
--- NOTE | 2019-12-04 13:30 | NUR ---
DR. YAO IN TO SEE PATIENT, OBSERVED HIM REMOVE SEVERAL KAMAR FROM ABDOMINAL AREA, LARGE AMOUNT OF FOUL SMELLING DRAINAGE FROM WOUND. ORDERES RECEIVED FOR CULTUR AND WOUND CARE.
--- NOTE | 2019-12-04 13:30 | NUR ---
PHYSICAL THERAPY Evaluation attempted, when pt transfer to sitting EOB foul smelling bloody discharge from abdomen was noted. Nsg and doctor were notified and pt was deemed inapropriate for evaluation at this time. PT evaluation to be attempted at a later date w physician approval. Thank you. Lorenzo Estrada SPT [facility]
--- NOTE | 2019-12-04 13:31 | NUR ---
OT NOTE Occupational therapy order received and OT evaluation was attempted. Patient was agreeable to an OT evaluation. Patient's PLOF/subjective information was acquired. Patient performed bed mobility to EOB. While seated EOB, patient presented with a large amount of red, foul smelling liquid/drainage from his abdomen. Physical therapist got nursing. Nursing and MDs into room to assess and patient returned supine. Per nursing, no further therapy to be completed at this time and patient to be on bedrest. Will attempt at a later date as appropriate/medically stable for an OT evaluation. Thank you. Kamilla Ma, OTR/L
--- NOTE | 2019-12-04 14:17 | NUR ---
PATIENT REPORTS DECREASE IN PAIN TO 5/10.
--- NOTE | 2019-12-04 14:40 | NUR ---
PHYSICAL THERAPY Per NSG pt on bedrest until otherwise stated per physician. Will continue to follow. Thank you. Lorenzo Estrada SPT [facility]
[2019-12-04 16:00] VITALS: BP 131/69
--- NOTE | 2019-12-04 16:47 | NUR ---
PATIENT C/O OF ABDOMINAL PAIN RATES 9 AND CONSTANT PAIN, PER PATIENT DILAUDID TAKES THE EDGE OFF BUT PAIN NEVER GETS BELOW A SIX.
--- NOTE | 2019-12-04 17:44 | NUR ---
PATIENT CONTINUES TO C/O OF ABDOMINAL PAIN DESPITE GETTING DILAUDID Q [address] YAO AWARE.
[2019-12-04 20:00] VITALS: BP 136/64
--- NOTE | 2019-12-04 20:40 | NUR ---
PATIENT C/O PAIN TO ABDOMEN, DILAUDID GIVEN PER REQUEST RATES PAIN 9/10 ABDOMINAL DRESSING HAS SMALL AMT OF DRAINAGE SHOWING THROUGH. RT PRIYA DRAIN SHOWING PURULENT/GREEN DRAINAGE. LT PRIYA DRAIN SHOWING BLOODY DRAINAGE.
--- NOTE | 2019-12-04 21:40 | NUR ---
PATIENT RATES PAIN 7/10 ON PAIN SCALE POST DILAUDID
--- NOTE | 2019-12-04 23:40 | NUR ---
ABD PADS & GAUZE TO ABDOMINAL DRESSING CHANGED AT THIS TIME. PT REQUESTED AND REC'D IV DILAUDID PER PRN ORDER FOR C/O PAIN RATED 9/10 TO ABDOMEN.
[2019-12-05] VITALS: BP 130/67
--- NOTE | 2019-12-05 02:40 | NUR ---
DILAUDID GIVEN PER REQUEST FOR 9/10 PAIN TO ABDOMEN.
[2019-12-05 06:41] LABS: HEMATOCRIT 32.1 % (42.0-52.0); MEAN CELL VOLUME 70.2 fl (80.0-94.0); MEAN CORPUSCULAR HGB 20.8 pg (27.0-31.0); MEAN CORPUSCULAR HGB CONC 29.6 g/dl (33.0-37.0); MEAN PLATELET VOLUME 10.2 fl (9.6-12.3); NUCLEATED RED BLOOD CELL 0.3 % (0.0-0.0); PLATELET COUNT AUTOMATED 362 10*3/uL (130-400); RED BLOOD COUNT 4.57 10*6/uL (4.50-5.90); WHITE BLOOD COUNT 14.5 10*3/uL (4.8-10.8)
[2019-12-05 07:06] LABS: ATYPICAL LYMPHS 1 % (0-0); MICROCYTOSIS SLIGHT; OVALOCYTES FEW; PLATELET SUFFICIENCY NORMAL (NORMAL); POLYCHROMASIA SLIGHT; SCHISTOCYTES FEW; TOTAL CELLS COUNTED 100 #CELLS
--- NOTE | 2019-12-05 07:08 | NUR ---
Spoke with regarding wound vac placement to patient midline abd. Dr. Hodge states midline surgical wound dehisced when kita were removed and to use black foam for this area.
[2019-12-05 07:51] LABS: ALBUMIN 1.3 gm/dl (3.1-4.5); ALKALINE PHOSPHATASE 63 U/L (45-117); BUN 12 mg/dl (7-24); CHLORIDE 102 mmol/L (98-107); LIPASE 1103 U/L (73-393); SGOT/AST 31 IU/L (3-35); SGPT/ALT 12 U/L (12-78); SODIUM 135 mmol/L (136-145); TOTAL PROTEIN 6.4 gm/dL (6.4-8.2)
[2019-12-05 07:53] LABS: POTASSIUM 4.7 mmol/L (3.5-5.1)
[2019-12-05 08:00] VITALS: BP 118/64
--- NOTE | 2019-12-05 08:33 | NUR ---
Wound vac applied per order from Dr. Hodge with the help of Vanessa RN caring for patient. Patient was given pain medication by Vanessa RN before application. The midline dehisced wound measured 10.5cm x 11cm x 8cm once gauze packing was removed. Odor noted when removed. Large amount of drainage noted. Patient stated he had some pain at time of placement. Patient tolerated vac placement ok.
--- NOTE | 2019-12-05 09:00 | NUR ---
case management visits with patient, again discussed with him a discharge plan including a short term skilled or an LTAC, educated patient on both of these and educated him on what each facility would offer and how it would benefit the patient, he stated he would consider these options, he asked that case management see which facilties will accept his insurance. facility planner will check with detention facilities and also [facility] to see which facility will accept his insurance
--- NOTE | 2019-12-05 11:15 | NUR ---
OT NOTE Occupational therapy evaluation attempted this AM. Per discussion with nurse, patient is not appropriate for an OT evaluation at this time due to nursing monitoring his wound vac. Will check back at a later date as appropriate. Thank you. Kamilla Ma OTR/L
--- NOTE | 2019-12-05 11:15 | NUR ---
PHYSICAL THERAPY PT evaluation discussed with nsg. Per nsg pt not clear for PT at this time due to new wound vac. Asked that we checked again later. Plan to follow and attempt evaluation at later time/date. Thank you. Lorenzo Estrada SPT [facility] PT
[2019-12-05 12:00] VITALS: BP 129/66
--- NOTE | 2019-12-05 12:55 | NUR ---
DR. YAO TELEPHONE ORDER TO ADVANCE DIET TO CLEAR LIQUIDS.
--- NOTE | 2019-12-05 13:37 | NUR ---
CONSULT TO LAURENT NUNEZ PER ORDER DONE 12/05/19, AT [phone]
--- NOTE | 2019-12-05 14:07 | NUR ---
PHYSICAL THERAPY PT evaluation discussed with nursing. Pt not appropriate at this time due to wound vac insertion per nsg. Will attempt at a later date. Thank you. Lorenzo Estrada SPT [facility] PT
--- NOTE | 2019-12-05 14:15 | NUR ---
OT NOTE Occupational therapy order received. Discussed with nursing this afternoon, patient not appropriate for an OT evaluation due to his wound vac placement. Will check back at a later date. Thank you. Kamilla Ma, OTR/L
[2019-12-05 16:00] VITALS: BP 134/71
[2019-12-05 20:00] VITALS: BP 133/73
--- NOTE | 2019-12-05 20:12 | NUR ---
DILAUDID GIVEN PER PT REQUEST FOR PAIN, PT APPEARS ANXIOUS, HR 124. VISTARIL PROVIDED FOR ANXIETY. PT IS AFEBRILE. WOUND VAC DRESSING CLEAN AND INTACT AT CONT SUCTION PER ORDERS WITH PURULENT BLOOD TINGED DRAINAGE. PT ENCOURAGED TO TURN, COUGH AND DEEP BREATHE. PILLOW PROVIDED TO SPLINT. CALL LIGHT IN REACH.
--- NOTE | 2019-12-05 21:12 | NUR ---
PATIENT RESTING, NO S/S DISTRESS. DILAUDID APPEARS EFFECTIVE FOR PAIN & VISTARIL FOR ANXIETY. WILLL CONT TO MONITOR.
--- NOTE | 2019-12-05 21:54 | NUR ---
PATIENT AWAKE AND REQUESTING PAIN MEDICATIONS. NOTIFIED THAT HE IS NOT YET DUE. WHITE BOARD UPDATED.
--- NOTE | 2019-12-05 23:07 | NUR ---
dr camejo notified of patients hr 120s. new orders rec'd.
--- NOTE | 2019-12-05 23:23 | NUR ---
EKG SHOWING HR 128, IV LOPRESSOR GIVEN PER 1X ORDERS.
[2019-12-06] VITALS (7 sets, daily range): BP systolic 109–134; BP diastolic 65–78
--- NOTE | 2019-12-06 00:40 | NUR ---
HR 120S DR SANTORO NOTIFIED. STATES TO REPEAT DOSE OF LOPRESSOR
--- NOTE | 2019-12-06 02:39 | NUR ---
DR SANTORO UPDATED ON PATIENT VITALS
--- NOTE | 2019-12-06 03:18 | NUR ---
DILAUDID GIVEN PER PT REQUEST FOR C/O 12/15 ABDOMINAL PAIN, VSS CALL LIGHT IN REACH
--- NOTE | 2019-12-06 04:18 | NUR ---
PATIENT SLEEPING , RESPS 17 ON 4L NC
--- NOTE | 2019-12-06 05:30 | NUR ---
PATIENT TAKES OFF O2, SPO2 89% ON ROOM AIR. 4L REAPPLIED SPO2 96%
[2019-12-06 06:02] LABS: ALBUMIN 1.2 gm/dl (3.1-4.5); ALKALINE PHOSPHATASE 72 U/L (45-117); BUN 14 mg/dl (7-24); CHLORIDE 102 mmol/L (98-107); CREATININE 0.52 mg/dL (0.70-1.30); LIPASE 803 U/L (73-393); POTASSIUM 4.4 mmol/L (3.5-5.1); SGOT/AST 29 IU/L (3-35); SGPT/ALT 14 U/L (12-78); SODIUM 135 mmol/L (136-145); TOTAL PROTEIN 6.4 gm/dL (6.4-8.2)
[2019-12-06 06:15] LABS: HEMATOCRIT 34.2 % (42.0-52.0); MEAN CELL VOLUME 69.5 fl (80.0-94.0); MEAN CORPUSCULAR HGB 20.5 pg (27.0-31.0); MEAN CORPUSCULAR HGB CONC 29.5 g/dl (33.0-37.0); MEAN PLATELET VOLUME 10.5 fl (9.6-12.3); NUCLEATED RED BLOOD CELL 0.2 % (0.0-0.0); RED BLOOD COUNT 4.92 10*6/uL (4.50-5.90); RED CELL DISTRI WIDTH 24.5 % (0-14.5); WHITE BLOOD COUNT 18.3 10*3/uL (4.8-10.8)
[2019-12-06 06:22] LABS: PLATELET COUNT AUTOMATED 527 10*3/uL (130-400)
--- NOTE | 2019-12-06 06:26 | NUR ---
PATIENT INCONTINENT OF URINE AND SMALL BM. BED BATHED AND GIVEN NEW LINENS. URINAL IS WITHIN REACH & CALL LIGHT .
[2019-12-06 07:04] LABS: MICROCYTOSIS SLIGHT; PLATELET SUFFICIENCY HIGH (NORMAL); TOTAL CELLS COUNTED 100 #CELLS
[2019-12-06 07:05] LABS: OVALOCYTES FEW; POLYCHROMASIA SLIGHT; SCHISTOCYTES FEW
--- NOTE | 2019-12-06 08:43 | NUR ---
MALTED MILK SUPERVISOR FAXED REFERRAL TO [facility] FOR REVIEW.
--- NOTE | 2019-12-06 08:45 | NUR ---
PHYSICAL THERAPY Physical Therapy evaluation completed on 4th floor with full evaluation to follow. Recommend physical therapy per plan of care and SNF vs LTAC upon discharge. Thank you for this referral. Lorenzo Estrada SPT [facility] PT
--- NOTE | 2019-12-06 08:52 | NUR ---
Occupational Therapy evaluation completed on four with full evaluation to follow. Recommend occupational therapy per plan of care and SNF vs LTAC upon discharge. Thank you for this referral. Kamilla Ma OTR/L
--- NOTE | 2019-12-06 08:55 | NUR ---
DELIVERY TRUCK DRIVER FAXED REFERRAL TO [facility] [place] FOR REVIEW.
[2019-12-06] MEDS ORDERED: DULOXETINE HCL60 MG PO (09:01)
[2019-12-06] MEDS ORDERED: HYDROXYZINE HCL25 MG PO (09:01)
[2019-12-06] MEDS ORDERED: RISPERIDONE1 MG PO (09:01)
--- NOTE | 2019-12-06 09:19 | NUR ---
Medicated with dilaudid iv per prn order for complaints of abdominal pain.
--- NOTE | 2019-12-06 09:45 | NUR ---
States dilaudid somewhat helped pain to abdomen. Rates as a 5/10, prior pt had rated an 8/10.
--- NOTE | 2019-12-06 12:23 | NUR ---
PT MEDICATED WITH PRN DILAUDID FOR C/O ABDOMINAL PAIN RATED AN 8/10. WILL MONITOR FOR EFFECTIVENESS.
--- NOTE | 2019-12-06 13:15 | NUR ---
States that dilaudid given earlier was effective.
--- NOTE | 2019-12-06 13:36 | NUR ---
Medicated with tylenol per prn order for complaints of continued pain to abdomen.
--- NOTE | 2019-12-06 14:18 | NUR ---
Nutritional Support Services Note: Pt is now receiving a clear liquid diet. Tolerating po intake at this time. Will continue to follow for further advancement. Vika Carl Rdn Ld
--- NOTE | 2019-12-06 15:21 | NUR ---
Medicated with dilaudid iv per prn order for complaints of abdominal pain. States pain was 8/10.
--- NOTE | 2019-12-06 15:31 | NUR ---
[facility] DENIED PATIENT. [facility] IS SUBMITTING FOR PRECERT.
--- NOTE | 2019-12-06 16:00 | NUR ---
States pain was somewhat helped by dilaudid.
--- NOTE | 2019-12-06 18:51 | NUR ---
Medicated with dilaudid iv per prn order for c/o abdominal pain. States pain is 8/10.
--- NOTE | 2019-12-06 21:56 | NUR ---
DILAUDID GIVEN FOR PAIN RATED A 8.5 OUT OF 10 TO THE ABDOMEN
--- NOTE | 2019-12-06 22:45 | NUR ---
DILAUDID MODERATELY EFFECTIVE IN PAIN RELIEF
[2019-12-07] VITALS: BP 116/71
--- NOTE | 2019-12-07 01:10 | NUR ---
DILAUDID GIVEN FOR PAIN RATED A 10 TO THE ABDOME
--- NOTE | 2019-12-07 01:53 | NUR ---
DILAUDID EFFECTIVE, PATIENT SLEEPING SOUNDLY IN ROOM AT THIS TIME
--- NOTE | 2019-12-07 02:37 | NUR ---
24 HR chart check completed.
--- NOTE | 2019-12-07 04:12 | NUR ---
DILAUDID GIVEN FOR PAIN RATED A 10 TO THE ABDOMEN
[2019-12-07 06:12] LABS: HEMATOCRIT 29.3 % (42.0-52.0); MEAN CELL VOLUME 70.4 fl (80.0-94.0); MEAN CORPUSCULAR HGB 20.2 pg (27.0-31.0); MEAN CORPUSCULAR HGB CONC 28.7 g/dl (33.0-37.0); MEAN PLATELET VOLUME 9.3 fl (9.6-12.3); NUCLEATED RED BLOOD CELL 0.1 % (0.0-0.0); PLATELET COUNT AUTOMATED 499 10*3/uL (130-400); RED BLOOD COUNT 4.16 10*6/uL (4.50-5.90); RED CELL DISTRI WIDTH 23.7 % (0-14.5); WHITE BLOOD COUNT 16.5 10*3/uL (4.8-10.8)
[2019-12-07 06:41] LABS: ALBUMIN 1.1 gm/dl (3.1-4.5); BUN 11 mg/dl (7-24); CHLORIDE 100 mmol/L (98-107); CREATININE 0.47 mg/dL (0.70-1.30); LIPASE 554 U/L (73-393); POTASSIUM 3.7 mmol/L (3.5-5.1); SGOT/AST 29 IU/L (3-35); SGPT/ALT 17 U/L (12-78); SODIUM 134 mmol/L (136-145)
[2019-12-07 06:42] LABS: ALKALINE PHOSPHATASE 84 U/L (45-117); TOTAL PROTEIN 6.2 gm/dL (6.4-8.2)
[2019-12-07 06:57] LABS: MICROCYTOSIS SLIGHT; PLATELET SUFFICIENCY HIGH (NORMAL); TOTAL CELLS COUNTED 100 #CELLS
--- NOTE | 2019-12-07 07:39 | NUR ---
DILAUDID GIVEN FOR PAIN RATED A 8 OUT OF 10
[2019-12-07 08:00] VITALS: BP 135/58
--- NOTE | 2019-12-07 08:02 | NUR ---
PER PT, DILAUDID EFFECTIVE FOR SURGICAL PAIN. CALL LIGHT IN REACH. WILL MONITOR.
--- NOTE | 2019-12-07 09:13 | NUR ---
REFUSING WOUND CARE TO BILAT KNEE ABRASIONS AT THIS TIME. ALSO REFUSING AQUAPHOR TX.
--- NOTE | 2019-12-07 10:52 | NUR ---
DILAUDID GIVEN FOR PAIN TO ABD RATED 9/10. CALL LIGHT IN REACH. WILL MONITOR FOR EFFECTIVENESS.
--- NOTE | 2019-12-07 11:00 | NUR ---
IN TO SEE PT AT THIS TIME. PER , DO NOT CHANGE WOUND VAC TODAY. HE WILL DO THIS AT THE BEDSIDE ON 12/08 HIMSELF.
--- NOTE | 2019-12-07 11:16 | NUR ---
PER PT, DILAUDID EFFECTIVE FOR PAIN. CALL LIGHT IN REACH. PAIN RATED 4/10.
[2019-12-07 12:00] VITALS: BP 135/60
--- NOTE | 2019-12-07 13:14 | NUR ---
Hep Lock RIGHT HAND discontinued. Site asymptomatic. Pressure applied. Sterile dressing applied. ZANDER SHABAZZ
--- NOTE | 2019-12-07 14:25 | NUR ---
DILAUDID GIVEN FOR ENTIRE ABDOMEN. WILL MONITOR. CALL LIGHT WITHIN REACH.
--- NOTE | 2019-12-07 14:42 | NUR ---
WOUND VAC CANISTER CHANGED AT THIS TIME.
[2019-12-07 16:00] VITALS: BP 128/60
--- NOTE | 2019-12-07 17:43 | NUR ---
DILAUDID GIVEN FOR ABDOMINAL PAIN. WILL MONITOR. CALL LIGHT WITHIN REACH
--- NOTE | 2019-12-07 18:30 | NUR ---
DILAUDID EFFECTIVE PER PATIENT. CALL LIGHT WITHIN REACH.
[2019-12-07 20:00] VITALS: BP 123/68
--- NOTE | 2019-12-07 20:46 | NUR ---
DILAUDID ADMINISTERED FOR PT C/O 9/10 LOWER ABDOMINAL PAIN. WILL CONTINUE TO MONITOR AND REASSESS. SURGICAL SITE WELL APPROXIMATED. WOUND VAC 125 LOW CONTINUOUS. PRIYA DRAINS INTACT. RIGHT PRIYA #1 DRAINING WHITE/YELLOW DRAINAGE, LEFT PRIYA #2 DRAINING SANGUINEOUS DRAINAGE.
--- NOTE | 2019-12-07 21:38 | NUR ---
PT ASLEEP AT THIS TIME. NO S&S OF DISTRESS.
[2019-12-08] VITALS: BP 130/72
--- NOTE | 2019-12-08 00:37 | NUR ---
DILAUDID ADMINISTERED FOR PT C/O 01/15 ABDOMINAL PAIN. WILL MONITOR AND REASSESS.
--- NOTE | 2019-12-08 01:15 | NUR ---
PT ASLEEP. NO SIGNS OF DISCOMFORT OR DISTRESS NOTED AT THIS TIME.
--- NOTE | 2019-12-08 03:35 | NUR ---
DILAUDID ADMINISTERED FOR PT C/O LOWER ABDOMINAL PAIN RATED AN 8/10 AT THIS TIME. WILL MONITOR AND REASSESS.
--- NOTE | 2019-12-08 07:42 | NUR ---
IN TO DRAIN PATIENTS PRIYA DRAINS, AND COME ACROSS A PUDDLE OF LIQUID ON THE FLOOR. PATIENT HAD HIS PPN/LIPIDS UNHOOKED, AND THEY WERE RUNNING ONTO THE GROUND. PT ALSO HAD HIS WOUND VAC DISCONNECTED. WHEN ASKED WHY THESE THINGS WERE UNPLUGGED HE STATED HE WAS "MAD BECAUSE HIS PAIN MEDICATION WAS DUE 30 MINUTES AGO" AND "I SHOULD HAVE BROUGHT IT TO HIM ON TIME". I EXPLAINED THAT I AM TAKING CARE OF OTHER PATIENTS AND HAD A BUSY MORNING, HE RESPONDED WITH "GO GET ME MY MEDICINE AND I'LL TELL YOU WHAT ELSE IS UNPLUGGED". I INFORMED THE PATIENT THAT I WILL NOT BE PARTICIPATING IN THESE TYPES OF GAMES WITH HIM AND THAT HE NEEDS TO LEAVE THESE THINGS ALONE. PT THEN STATED HE "HAD TO GO TO THE RESTROOM AND HIT HIS LIGHT AND NO ONE CAME". DURING THIS TIME WE WERE ALL GIVING REPORT. PT DIDN'T APPEAR TO BE IN ANY OVERT DISTRESS ON ENTRANCE TO ROOM. PT BECAME AGGRESSIVE IN HIS TONE WHILE DEMANDING HIS PAIN MEDICATION. WILL BE MEDICATED WITH DOSE OF DILAUDID.
--- NOTE | 2019-12-08 07:50 | NUR ---
MEDICATED WITH DILAUDID PER PT'S REQUEST FOR ABDOMINAL PAIN RATED A 9/10.
[2019-12-08 08:00] VITALS: BP 145/69
[2019-12-08 08:04] LABS: HEMATOCRIT 31.7 % (42.0-52.0); MEAN CELL VOLUME 70.8 fl (80.0-94.0); MEAN CORPUSCULAR HGB 20.5 pg (27.0-31.0); MEAN PLATELET VOLUME 9.2 fl (9.6-12.3); PLATELET COUNT AUTOMATED 557 10*3/uL (130-400); RED BLOOD COUNT 4.48 10*6/uL (4.50-5.90); RED CELL DISTRI WIDTH 23.9 % (0-14.5)
[2019-12-08 08:19] LABS: ALBUMIN 1.2 gm/dl (3.1-4.5); ALKALINE PHOSPHATASE 85 U/L (45-117); BUN 9 mg/dl (7-24); CHLORIDE 104 mmol/L (98-107); CREATININE 0.54 mg/dL (0.70-1.30); POTASSIUM 3.6 mmol/L (3.5-5.1); SGOT/AST 32 IU/L (3-35); SGPT/ALT 20 U/L (12-78); SODIUM 136 mmol/L (136-145); TOTAL PROTEIN 6.7 gm/dL (6.4-8.2)
[2019-12-08 08:21] LABS: MICROCYTOSIS SLIGHT; OVALOCYTES FEW; PLATELET SUFFICIENCY HIGH (NORMAL); TOTAL CELLS COUNTED 100 #CELLS
--- NOTE | 2019-12-08 08:38 | NUR ---
PATIENT STATES PAIN MEDICATION IS EFFECTIVE, ABDOMINAL PAIN IS NOW 4 OF 10. WILLL MONITOR. CALL LIGHT WITHIN REACH.
--- NOTE | 2019-12-08 09:32 | NUR ---
SPOKE WITH ABOUT PAIN MGMT. REQUESTED TO ADD PERCOCET ON FOR PAIN. SAID HE WOULD TALK IT OVER WITH .
--- NOTE | 2019-12-08 10:33 | NUR ---
DILAUDID GIVEN FOR ABDOMINAL PAIN. WILL MONITOR. CALL LIGHT WITHIN REACH.
--- NOTE | 2019-12-08 10:35 | NUR ---
PATIENT GIVEN IV TYLENOL FOR ABDOMINAL PAIN. WILL MONITOR. CALL LIGHT WITHIN REACH.
--- NOTE | 2019-12-08 10:52 | NUR ---
WOUND VAC STOPPED AND SHUT OFF AT THIS TIME FOR ACTIVE BLOCKAGE. UNABLE TO RELEASE BLOCKAGE. NOTIFIED. ORDERED TO CHANGE WOUND VAC DRSG AT THIS TIME.
--- NOTE | 2019-12-08 10:53 | NUR ---
DILAUDID GIVEN PER PATIENT REQUEST FOR AABDOMINAL PAIN 01/15. WILL MONITOR EFFECTIVENESS. CALL LIGHT WITHIN REACH.
--- NOTE | 2019-12-08 11:09 | NUR ---
DILAUDID EFFECTIVE PER PATIENT. WILL MONITOR. CALL LIGHT IN REACH.
--- NOTE | 2019-12-08 11:23 | NUR ---
REFUSING WOUND CARE TO BILAT KNEES AGAIN TODAY. AREAS ARE SCABBED OVER AND STABLE AT TIME OF ASSESSMENT.
--- NOTE | 2019-12-08 11:46 | NUR ---
WOUND VAC DRSG CHANGE COMPLETED. TOLERATED FAIRLY WELL. WILL MONITOR. CALL LIGHT IN REACH. BED IN LOWEST POSITION WITH WHEELS LOCKED. ISOLATION MAINTAINED.
[2019-12-08 12:00] VITALS: BP 143/78
--- NOTE | 2019-12-08 12:32 | NUR ---
PATIENT CALLED OUT REQUESTING PAIN MEDS. GIVEN PERCOCED FOR ABDOMINAL PAIN 9 OR 10. CALL LIGHT WITHIN REACH. WILL MONITOR.
--- NOTE | 2019-12-08 13:03 | NUR ---
PATIENT REPORTS PAIN MEDS EFFECTIVE. WILL MONITOR, CALL LIGHT WITHIN REACH.
--- NOTE | 2019-12-08 13:56 | NUR ---
AND PRIMARY TEAM AWARE OF CT RESULTS SHOWING ABSCESS. NEW ORDERS REC'D FROM .
--- NOTE | 2019-12-08 15:22 | NUR ---
PATIENT GIVEN DILAUDED FOR ABDOMINAL PAIN RATED 9/10 PER PATIENT REQUEST. WILL MONITOR EFFECTIVENESS. CALL LIGHT WITHIN REACH.
[2019-12-08 16:00] VITALS: BP 132/69
--- NOTE | 2019-12-08 16:01 | NUR ---
CALLED, UPDATED ON STATUS. NO NEW CONCERNS VOICED AT THIS TIME.
--- NOTE | 2019-12-08 16:02 | NUR ---
PATIENT STATES PAIN MEDICATION EFFECTIVE. ABDOMINAL PAIN IS LESSENED. RATED AT 4 OF 10. WILL MONITOR. CALL LIGHT WITHIN REACH.
--- NOTE | 2019-12-08 16:08 | NUR ---
PATIENT RESTING COMFORTABLY IN BED. RATING ABDOMINAL PAIN AT 4 OF10.
--- NOTE | 2019-12-08 17:56 | NUR ---
PATIENT REPORTS NAUSEA AND ABDOMINAL PAIN. GIVEN PERCOCET AND ZOFRAN PER ORDERS. WILL MONITOR EFFECTIVENESS. CALL LIGHT IN REACH.
--- NOTE | 2019-12-08 18:13 | NUR ---
REQUESTED MED LIST FROM [facility]. SAID THEY WOULD FAX IT.
--- NOTE | 2019-12-08 18:32 | NUR ---
PERCOCET GIVEN FOR ABDOMINAL PAIN. WILL MONITOR. CALL LIGHT WITHIN REACH.
--- NOTE | 2019-12-08 18:40 | NUR ---
PATIENT STATES NAUSEA AND ABDOMINAL PAIN ARE TOLERABLE AT THIS TIME. MEDICATIONS EFFECTIVE. CALL LIGHT WITHIN REACH.
[2019-12-08 20:00] VITALS: BP 128/70
--- NOTE | 2019-12-08 20:30 | NUR ---
CLARIFIED DIO ORDER WITH DR. SUMNER. DOSE CHANGED, ORDERED TO STOP 2000 DOSE AND GIVE NEXT DOSE AT 0400 SCHEDULED
--- NOTE | 2019-12-08 21:31 | NUR ---
DILAUDID GIVEN PER ORDER FOR COMPLAINTS OF PAIN.WILL MONITOR
--- NOTE | 2019-12-08 22:30 | NUR ---
PT STATES JARETT HELPED
--- NOTE | 2019-12-08 23:55 | NUR ---
PERCOCET GIVEN FOR COMPLAINTS OF PAIN. WILL MONITOR
[2019-12-09] VITALS (13 sets, daily range): BP systolic 115–147; BP diastolic 62–75
--- NOTE | 2019-12-09 00:50 | NUR ---
PERCOCET APPEARS EFFECTIVE, PT ASLEEP
--- NOTE | 2019-12-09 02:00 | NUR ---
PT ASLEEP AT THIS TIME. IV INFUSING WITHOUT DIFFICULTY. RESPIRATIONS EASY AND UNLABORED
--- NOTE | 2019-12-09 04:00 | NUR ---
PT IS ASLEEP AT THIS TIME
--- NOTE | 2019-12-09 04:56 | NUR ---
IN TO SEE PT. PT MEDICATED WITH DILAUDID. WILL MONITOR EFFECTIVENESS
--- NOTE | 2019-12-09 05:55 | NUR ---
PT STATES HIS DILAUDID WAS EFFECTIVE FOR HIS PAIN
[2019-12-09 06:16] LABS: HEMATOCRIT 29.5 % (42.0-52.0); MEAN CELL VOLUME 70.9 fl (80.0-94.0); MEAN CORPUSCULAR HGB 20.2 pg (27.0-31.0); MEAN CORPUSCULAR HGB CONC 28.5 g/dl (33.0-37.0); MEAN PLATELET VOLUME 9.2 fl (9.6-12.3); NUCLEATED RED BLOOD CELL 0.2 % (0.0-0.0); PLATELET COUNT AUTOMATED 519 10*3/uL (130-400); RED BLOOD COUNT 4.16 10*6/uL (4.50-5.90); RED CELL DISTRI WIDTH 23.7 % (0-14.5)
[2019-12-09 06:31] LABS: ALBUMIN 1.2 gm/dl (3.1-4.5); ALKALINE PHOSPHATASE 83 U/L (45-117); BUN 8 mg/dl (7-24); CHLORIDE 104 mmol/L (98-107); CREATININE 0.48 mg/dL (0.70-1.30); POTASSIUM 3.8 mmol/L (3.5-5.1); SGOT/AST 29 IU/L (3-35); SGPT/ALT 21 U/L (12-78); SODIUM 136 mmol/L (136-145); TOTAL PROTEIN 6.9 gm/dL (6.4-8.2)
[2019-12-09 06:37] LABS: ACT PARTIAL THROMBO TIME 25.1 SECONDS (20.0-32.1); INTERNATIONAL NORM RATIO 1.1 (2.0-3.5)
[2019-12-09 07:11] LABS: MICROCYTOSIS SLIGHT; PLATELET SUFFICIENCY HIGH (NORMAL); TOTAL CELLS COUNTED 100 #CELLS
[2019-12-09 07:12] LABS: OVALOCYTES FEW; POLYCHROMASIA SLIGHT
--- NOTE | 2019-12-09 07:43 | NUR ---
PERIOPERATIVE ASSISTANT FAXED CLINICAL UPDATES FOR PRECERT WITH [facility].
--- NOTE | 2019-12-09 08:23 | NUR ---
COMPLAINING OF PAIN. UNABLE TO GIVE DILAUDAD,PERCOCET AT THIS TIME AND IS NPO FOR PROCEDURE TODAY. OK TO GIVE ONE DOSE IV DILAUDID NOW PER WHIT WELLINGTON CNP. SEE MAR.
--- NOTE | 2019-12-09 08:33 | NUR ---
DIALUDID GIVEN FOR ABD PAIN RATED 8/10. CALL LIGHT WITHIN REACH. WILL MONITOR.
--- NOTE | 2019-12-09 10:55 | NUR ---
PT REQUESTING SOMETHING FOR 8/10 PAIN TO ABDOMEN. MORPHINE GIVEN PER ORDER SEE EMAR.
--- NOTE | 2019-12-09 11:30 | NUR ---
PT REPORTS MORPHINE INEFFECTIVE, PAIN REMAINS AT A 8/10. WILL NOTIFY .
--- NOTE | 2019-12-09 11:41 | NUR ---
PRECERT FOR [facility] IS STILL PENDING. IF APPROVED [facility] IS REQUESTING PICC LINE BE PLACED.
--- NOTE | 2019-12-09 11:45 | NUR ---
OT NOTE Pt was seen this A.M. 1:1 for 15 minute OT session. Upon arrival pt was supine in bed. Pt identified by name and and had complaints of 8/10 abdominal pain. Pt presented to therapy with continuous 5L-O2 via NC and wound vac in place which he remained on throughout the entire session. Pt transferred supine to sit EOB with CGA. Sit to stand completed from bed level with CGA and use of w/w for UE support. Challenged pt's static standing tolerance needed for increased I in self care tasks and functional transfers. Pt was able to tolerate aprox 45 seconds at a time before sitting due to complaints of fatigue, weakness, and pain. Attempted to complete another stand and pt declined for the same reasons mentioned above (fatigue, weakness, and pain). Educated pt on benefits of therapy and enhancing his endurance and pt continued to decline. Pt transferred back into bed sit to supine with CGA. There he was left with call light in hand, tray table in place, and bed alarm activated for safety. Continue with POC as able. WAYNE Nye/Kadie
--- NOTE | 2019-12-09 11:45 | NUR ---
PHYSICAL THERAPY Patient seen this am 1:1 for therapy visit and was resting supine in bed with multiple IV"s and continuous O2-5L via NC upon therapist arrival. Patient identified by name / and reports abdominal pain 8/10 around wound vac site. Patient transfers CGA from supine to sit EOB, while tolerating 5-6 minutes static EOB sit. Patient completed sit to stand transfer, CGA, use of wh walker standing support, CGA x 1, tolerating only 45 seconds static stand secondary to incresaed B LE weakness / fatigue. Patient returned to supine in bed and remained with call light, tray table and telephone. Patient also recorded SpO2 100%, HR 119 bpm following standing activity. Will continue per POC as tolerated, total treatment time 13 minutes. Cruz Ortiz, BORDER POLICE
--- NOTE | 2019-12-09 13:12 | NUR ---
case management received a call from , nurse reviewer from [facility] [employer], she stated [facility] is not in network with patient's insurance but [facility] and [facility] are both in network, shoe lay out planner will send referral to [facility] and ask that they initiate precert
--- NOTE | 2019-12-09 13:17 | NUR ---
PT OFF UNIT TO CT AT THIS TIME VIA TRANSPORT.
--- NOTE | 2019-12-09 13:33 | NUR ---
[facility] called and stated they are out of network with [facility] but they are in network with [facility] in [place]. Faxed referral to [facility]; waiting on review/acceptance.
--- NOTE | 2019-12-09 13:59 | NUR ---
YESSI SPOKE WITH JUAN. PER KATT THE PATIENTS INSURANCE POLICY IS OUT OF NETWORK AND THEY ARE TRYING TO SUBMIT FOR A GAP EXCEPTION. WILL NOTIFY LPN RN HOSPICE.
--- NOTE | 2019-12-09 14:08 | NUR ---
PT REQUESTING PAIN MEDICATION AT THIS TIME FOR 8/10 ABD PAIN. SEE EMAR
--- NOTE | 2019-12-09 14:28 | NUR ---
PT STATES MORPHINE WAS EFFECITVE, 6/10 ON PAIN SCALE.
--- NOTE | 2019-12-09 14:38 | NUR ---
BACK TO ROOM FOLLOWING PROCEDURE TODAY. VSS.
--- NOTE | 2019-12-09 14:58 | NUR ---
PT REQUESTING PRN PERCOCET AT THIS TIME, 6/10 PAIN TO ABDOMEN.
--- NOTE | 2019-12-09 15:28 | NUR ---
PT REPORTS THE PERCOCET EFFECITVE FOR PAIN MANAGEMENT.
--- NOTE | 2019-12-09 20:55 | NUR ---
PERCOCET GIVEN PER ORDER FOR COMPLAINTS OF PAIN WILL MONITOR
--- NOTE | 2019-12-09 21:50 | NUR ---
PT SLEEPING. PERCOCET EFFECTIVE
--- NOTE | 2019-12-09 22:00 | NUR ---
PT SLEEPING AT THIS TIME. CALL LIGHT IN REACH
[2019-12-10] VITALS: BP 123/69
--- NOTE | 2019-12-10 00:03 | NUR ---
MORPHINE GIVEN PER ORDER FOR COMPLAINTS OF ABDOMEN PAIN.WILL MONITOR
--- NOTE | 2019-12-10 01:00 | NUR ---
MORPHINE APPEARS EFFECTIVE, PATIENT ASLEEP
--- NOTE | 2019-12-10 03:00 | NUR ---
PERCOCET GIVEN AT THIS TIME FOR COMPLAINTS OF PAIN. WILL MONITOR
--- NOTE | 2019-12-10 04:00 | NUR ---
PT ASLEEP. PERCOCET EFFECTIVE
--- NOTE | 2019-12-10 06:28 | NUR ---
MORPHINE GIVEN PER ORDER FOR COMPLAINTS OF PAIN.
[2019-12-10 06:46] LABS: HEMATOCRIT 31.6 % (42.0-52.0); MEAN CELL VOLUME 73.1 fl (80.0-94.0); MEAN CORPUSCULAR HGB 20.4 pg (27.0-31.0); MEAN CORPUSCULAR HGB CONC 27.8 g/dl (33.0-37.0); MEAN PLATELET VOLUME 9.2 fl (9.6-12.3); NUCLEATED RED BLOOD CELL 0.1 % (0.0-0.0); PLATELET COUNT AUTOMATED 463 10*3/uL (130-400); RED BLOOD COUNT 4.32 10*6/uL (4.50-5.90); RED CELL DISTRI WIDTH 23.6 % (0-14.5); WHITE BLOOD COUNT 13.6 10*3/uL (4.8-10.8)
[2019-12-10 07:07] LABS: ALBUMIN 1.3 gm/dl (3.1-4.5); BUN 9 mg/dl (7-24); CHLORIDE 102 mmol/L (98-107); LIPASE 836 U/L (73-393); SODIUM 136 mmol/L (136-145)
[2019-12-10 07:11] LABS: ALKALINE PHOSPHATASE 87 U/L (45-117); CREATININE 0.47 mg/dL (0.70-1.30); SGOT/AST 31 IU/L (3-35); SGPT/ALT 23 U/L (12-78); TOTAL PROTEIN 7.3 gm/dL (6.4-8.2)
[2019-12-10 07:37] LABS: MICROCYTOSIS SLIGHT; OVALOCYTES FEW; PLATELET SUFFICIENCY HIGH (NORMAL); POLYCHROMASIA SLIGHT; TOTAL CELLS COUNTED 100 #CELLS
[2019-12-10 08:00] VITALS: BP 130/70; BP 138/72
--- NOTE | 2019-12-10 09:00 | NUR ---
case management visits with patient, discussed with him going to a [facility], he is agreeable to this, habitat conservation planner is working on this, case management will follow
--- NOTE | 2019-12-10 09:04 | NUR ---
PRN MORPHINE: PRN MORPHINE GIVEN FOR COMPLAINTS OF PAIN. WILL MONITOR FOR EFFECTIVENESS. 11/14 PAIN.
--- NOTE | 2019-12-10 10:00 | NUR ---
RE-EVAL: PT RE-EVALUATED AT THIS TIME. PRN MORPHINE EFFECTIVE PER PT. CONTINUE TO MONITOR THE PT.
--- NOTE | 2019-12-10 11:07 | NUR ---
Called and spoke with Jose Elias from [facility] regarding faxed referral. They are reviewing the referral. Waiting on acceptance. requires precert.
[2019-12-10 12:00] VITALS: BP 127/79
--- NOTE | 2019-12-10 12:24 | NUR ---
PRN PERCOCET: PT GIVEN PRN PERCOCET FOR COMPLAINTS OF PAIN RATED A 6/10. WILL MONITOR THE EFFECTIVENESS.
--- NOTE | 2019-12-10 13:00 | NUR ---
PHYSICAL THERAPY Patient seen this pm 1:1 for therapy visit and was resting supine in bed upon therapist arrival. Patient identified by name / and presented with multiple IV's, continuous O2-4.5L via NC. Patient reports 6/10 abdominal pain and transfers supine to sit EOB with CGA x 1, needing a few minutes of static EOB sit to collect himself. Patient then completed sit to stand CGA, use of wh walker standing support, ambulating to bathroom, 15'x 2, CGA, demonstrating slow, cautious gait pattern, decreased stride and several facial grimaces during toilet transfer, SBA. Patient returned to supine in bed following gait ex, reporting no new c/o's. Patient remained in bed with call light, tray table, telephone and bed alarm for safety. Will continue per POC as tolerated, total treatment time 14 minutes. Cruz Ortiz, COOK MANAGER
--- NOTE | 2019-12-10 13:14 | NUR ---
OT NOTE Pt was seen this P.M. 1:1 for 15 minute OT session. Upon arrival pt was supine in bed. Pt identified by name and and had complaints of 6/10 abdominal pain. Pt presented to therapy with continuous 4.5L-O2 via NC, wound vac in place, and multiple IV's running which all remained in place throughout entire session. Pt transferred supine to sit EOB with CGA. Sit to stand completed from bed level with CGA and use of w/w for UE support. Functional mobility then completed to the bathroom with CGA and use of w/w. There he transferred on to the standard commode with CGA and use of grab bar for UE support. Once seated pt required a seated rest break due to quick onset of fatigue. Sit to stand completed from standard commode with Freddy due to low surface. Functional mobility completed back to the EOB where pt transferred sit to supine with CGA. There he was left with call light in hand, tray table in place, and phone in reach. Continue with POC as able. WAYNE Nye/Kadie
--- NOTE | 2019-12-10 13:21 | NUR ---
RE-EVAL: PT RE-EVALUATED A THIS TIME. PT STATES THAT THE PAIN MEDICATION IS EFFECTIVE. CONTINUE TO MONITOR THE PT.
--- NOTE | 2019-12-10 13:37 | NUR ---
[facility] stating patient does meet their criteria but requested updated clinicals and therapy notes from today. He stated once he receives the updates he will start precert. Updates faxed.
[2019-12-10 16:00] VITALS: BP 104/64
--- NOTE | 2019-12-10 16:25 | NUR ---
MEDICATED WITH MORPHINE 2MG IV FOR COMPLAINTS OF PAIN IN LEFT SIDE OF ABDOMEN AND LOWER PELVIS PAIN. ARTES PAIN A 9 ON A PAIN SCALE OF 1-10
--- NOTE | 2019-12-10 18:41 | NUR ---
MEDICATED WITH ONE PERCOCET FOR COMPLAINTS OF PAIN IN ABDOMEN. RATES PAIN A 7 ON A PAIN SCALE OF 1-10
--- NOTE | 2019-12-10 19:40 | NUR ---
REPORT RECEIVED. PT LYING IN BED. REQUESTING PAIN MEDICATION AT THIS TIME. EDUCATED THAT HE COULD NOT HAVE MEDICATION AGAIN UNTIL 2229. PT YELLED AT RN AND STATED THAT HE WANTED TO SPEAK WITH THE DOCTOR. DR. SANTORO NOTIFIED
[2019-12-10 20:00] VITALS: BP 125/66
--- NOTE | 2019-12-10 20:30 | NUR ---
DR. SANTORO IN TO SEE PT. REQUESTING PAIN MEDICATIONS AGAIN. EDUCATED NEXT TIME HE COULD HAVE THEM IS 2229. CALL LIGHT IN REACH
--- NOTE | 2019-12-10 21:30 | NUR ---
IN TO HANG IV ANTIBIOTICS. PT ASLEEP. PT AWAKENS AND SAYS "DID YOU BRING ME MY PAIN MEDICATION" PT EDUCATED AGAIN THAT MEDICINE IS DUE AT 2229. PT STATES, "YEAH, SO DID YOU BRING THEM" EDUCATED PT THAT IT WAS 2129. PT STATES "SO WHEN CAN I HAVE PAIN MEDICATION." EDUCATED PT THAT HE COULD HAVE IT IN 1 HOUR AT 0. CALL LIGHT IN REACH
--- NOTE | 2019-12-10 23:08 | NUR ---
MORPHINE GIVEN PER PT REQUEST FOR PAIN.
--- NOTE | 2019-12-10 23:57 | NUR ---
PT ASLEEP AT THIS TIME
[2019-12-11] VITALS: BP 119/65
--- NOTE | 2019-12-11 00:08 | NUR ---
MORPHINE EFFECTIVE, PT ASLEEP
--- NOTE | 2019-12-11 01:20 | NUR ---
PT SLEEPING AT THIS TIME. IV INFUSING WITHOUT DIFFICULTY. CALL LIGHT IN REACH
--- NOTE | 2019-12-11 02:04 | NUR ---
PT ASKING FOR PAIN MEDICINE AT THIS TIME. NURSE GOT PAIN PILL AND TOOK IT TO PT'S ROOM. PT AWAKENED AT THIS TIME TO TAKE PAIN PILL. PT ASKS, "WHATS THIS?" NURSE EDUCATES HIM THAT IT IS THE PAIN PILL HE REQUESTED.
--- NOTE | 2019-12-11 05:01 | NUR ---
MORPHINE GIVEN PER REQUEST BY PT. PT AWAKENED TO GIVE IV PUSH MEDICATION. NO COMPLAINTS. CALL LIGHT IN REACH
--- NOTE | 2019-12-11 06:00 | NUR ---
PT SLEEPING, MORPHINE APPEARS EFFECTIVE FOR PAIN.
[2019-12-11 06:48] LABS: HEMATOCRIT 30.4 % (42.0-52.0); MEAN CELL VOLUME 72.4 fl (80.0-94.0); MEAN CORPUSCULAR HGB 20.7 pg (27.0-31.0); MEAN CORPUSCULAR HGB CONC 28.6 g/dl (33.0-37.0); NUCLEATED RED BLOOD CELL 0.1 % (0.0-0.0); PLATELET COUNT AUTOMATED 448 10*3/uL (130-400); RED CELL DISTRI WIDTH 23.3 % (0-14.5); WHITE BLOOD COUNT 13.7 10*3/uL (4.8-10.8)
[2019-12-11 07:26] LABS: CHLORIDE 103 mmol/L (98-107); POTASSIUM 4.3 mmol/L (3.5-5.1); SODIUM 135 mmol/L (136-145)
[2019-12-11 07:32] LABS: BUN 10 mg/dl (7-24); CREATININE 0.51 mg/dL (0.70-1.30)
--- NOTE | 2019-12-11 07:50 | NUR ---
24HR CHART CHECK COMPLETE.
[2019-12-11 08:00] VITALS: BP 118/69
--- NOTE | 2019-12-11 08:14 | NUR ---
PRN PERCOCET: PT COMPLAINS OF PAIN 01/15. PRN PERCOCET GIVEN. WILL MONITOR EFFECTIVENESS.
[2019-12-11 08:32] LABS: TOTAL CELLS COUNTED 100 #CELLS
[2019-12-11 08:34] LABS: OVALOCYTES FEW; PLATELET SUFFICIENCY HIGH (NORMAL)
--- NOTE | 2019-12-11 08:37 | NUR ---
Patient has received auth for [facility] and is able to go today.
--- NOTE | 2019-12-11 09:10 | NUR ---
RE-EVAL: PRN MEDICATION RE-EVALUATED AT THIS TIME. PT STATES MEDICATION EFFECTIVE.CONTINUE TO MONITOR THE PT.
--- NOTE | 2019-12-11 11:02 | NUR ---
PRN MORPHINE: PRN MORPHINE GIVEN FOR COMPLAINTS OF PAIN. RATED 8/10. WILL MONITOR FOR EFFECTIVENESS.
[2019-12-11] MEDS ORDERED: FUROSEMIDE10 MG/1 M1 IV (11:10)
[2019-12-11] MEDS ORDERED: Carafate1 GM PO (11:10)
[2019-12-11] MEDS ORDERED: MERREM IV1 GM IV (11:10)
[2019-12-11] MEDS ORDERED: RISPERIDONE1 MG PO (11:10)
[2019-12-11] MEDS ORDERED: VANCOMYCIN2 GM/20 ML IV (11:10)
[2019-12-11] MEDS ORDERED: PROTONIX40 M1 IV (11:10)
[2019-12-11] MEDS ORDERED: DULOXETINE HCL60 MG PO (11:10)
--- NOTE | 2019-12-11 11:55 | NUR ---
DISCHARGE: SPOKE WITH DR. SMALLS ABOUT DISCHARGE. PT GOING TO [facility] AND PICC/MILINE CAN BE PLACED THERE. PT HAS BEEN TOLERATING DIET AND TPN CAN BE DISCONTINUED PER DR. WILL INFORM CASE MANAGEMENT. CONTINUE TO MONITOR THE PT.
[2019-12-11 12:00] VITALS: BP 119/78
--- NOTE | 2019-12-11 12:01 | NUR ---
RE-EVAL: PRN MORPHINE EFFECTIVE PER PT. CONTINUE TO MONITOR.
--- NOTE | 2019-12-11 13:01 | NUR ---
Patient is being discharged to [facility] in the [place] location. All discharge information faxed. [facility] will transport at 4PM. [facility], nursing/classified ad clerk notified.
--- NOTE | 2019-12-11 13:06 | NUR ---
PRN ZOFRAN: PT GIVEN PRN ZOFRAN FOR COMPLAINTS OF NAUSEA. WILL MONITOR THE EFFECTIVENESS.
--- NOTE | 2019-12-11 13:21 | NUR ---
OT NOTE Attempted to see pt this P.M. for OT session and upon arrival pt was supine in bed. Pt reported that he was not doing any therapy till he was able to talk to his nurse. Nurse notified who at the same time reported that pt is being discharged this P.M. JACLYN Nye
--- NOTE | 2019-12-11 13:25 | NUR ---
PHYSICAL THERAPY Patient was supine in bed this pm when approached for therapy and requested to speak with his nurse before attempting any therapy. Patient did not give a specific reason at this time. Per discussion with Nurse, patient to be d/c at 1600 hours this date. Will continue per POC as appropriate. Cruz Ortiz, BARKEEPER
--- NOTE | 2019-12-11 13:31 | NUR ---
DISCHARGE PICS: WOUND VAC TO REMAIN IN PLACE. PT REFUSING PICTURES TO OTHER WOUNDS, MIDLINE INCISION, AND BILATERAL KNEE ABRASIONS. CONTINUE TO MONITOR THE PT.
--- NOTE | 2019-12-11 13:33 | NUR ---
RE-EVAL: PT STATES THAT HE IS NO LONGER NAUSEATED AND THE PRN ZOFRAN WAS EFFECTIVE. CONTINUE TO MONITOR THE PT.
--- NOTE | 2019-12-11 14:24 | NUR ---
PRN PERCOCET: PT GIVEN PRN PERCOCET FOR COMPLAINTS OF PAIN. WILL MONITOR EFFECTIVENESS.
--- NOTE | 2019-12-11 14:55 | NUR ---
NURSE TO NURSE: REPORT CALLED TO LESTER LA AT [facility] IN [place]. ANSWERED ALL QUESTIONS AND PROVIDED A CALL BACK NUMBER. TWO IV SITES TO REMAIN INTACT FOR TRANSPORT. WOUND VAC TO BE DISCONNECTED PRIOR TO PT LEAVING. INFORMED OF PICKUP TIME OF 1600. PT READY FOR TRANSFER. CONTINUE TO MONITOR THE PT.
--- NOTE | 2019-12-11 14:57 | NUR ---
RE-EVAL: PT STATES THAT HIS PAIN IS BETTER AT THIS TIME. PRN PERCOCET EFFECTIVE. CONTINUE TO MONITOR THE PT.
--- NOTE | 2019-12-11 16:21 | NUR ---
Discharge instructions reviewed with patient/family. Patient receptive and verbalizes understanding. Follow-up care arranged. Written instructions given to patient/family. PATIENT LEFT IN CARE OF HOSPERS TO GO TO [facility]. WOUND VAC CLAMPED AND WOUND VAC REMVOED. NIKO AVALOS
--- NOTE | 2019-12-12 08:03 | NUR ---
PHYSICAL THERAPY CO-SIGN I approve of the Physical Therapy notes written above. Crystal Barney PT
--- NOTE | 2019-12-12 11:54 | NUR ---
OCCUPATIONAL THERAPY CO-SIGN I approve of the Occupational Therapy notes written above. CHEMO GENAO, OTR/L
== END 2019-12-11 16:30 | DRG 326 ==
LOC: ED 18:51 → 5E 23:37 → EDHOLD 23:37 → 4E 23:37 → 5E 23:56 → ICCU 11-26 09:21 → 4E 11-29 18:43
PROVIDERS: Emergency Medicine; Family Medicine; Hospitalist; Internal Medicine; Internal Medicine Critical Care Medicine; Student in an Organized Health Care Education/Training Program; Surgery; ADMIT Emergency Medicine
PROC: 30233N1 Transfusion of Nonautologous Red Blood Cells into Peripheral Vein, Percutaneous Approach (ICD-10-PCS; principal; 2019-11-24)
PROC: 0DU607Z Supplement Stomach with Autologous Tissue Substitute, Open Approach (ICD-10-PCS; 2019-11-26)
PROC: 0DJ64ZZ Inspection of Stomach, Percutaneous Endoscopic Approach (ICD-10-PCS; 2019-11-26)
PROC: 0W9H30Z Drainage of Retroperitoneum with Drainage Device, Percutaneous Approach (ICD-10-PCS; 2019-12-09)
PROC: 3E0336Z Introduction of Nutritional Substance into Peripheral Vein, Percutaneous Approach (ICD-10-PCS; 2019-12-09)
DX: K25.6 Chronic or unspecified gastric ulcer with both hemorrhage and perforation (principal); K85.90 Acute pancreatitis without necrosis or infection, unspecified; A41.9 Sepsis, unspecified organism; J96.01 Acute respiratory failure with hypoxia; K65.1 Peritoneal abscess; J95.2 Acute pulmonary insufficiency following nonthoracic surgery; N17.0 Acute kidney failure with tubular necrosis; D62 Acute posthemorrhagic anemia; J98.11 Atelectasis; T81.31XA Disruption of external operation (surgical) wound, not elsewhere classified, initial encounter; E87.2 Acidosis; E46 Unspecified protein-calorie malnutrition; Z16.12 Extended spectrum beta lactamase (ESBL) resistance; E87.1 Hypo-osmolality and hyponatremia; R73.9 Hyperglycemia, unspecified; E87.8 Other disorders of electrolyte and fluid balance, not elsewhere classified; E80.6 Other disorders of bilirubin metabolism; F31.9 Bipolar disorder, unspecified; K76.0 Fatty (change of) liver, not elsewhere classified; F17.220 Nicotine dependence, chewing tobacco, uncomplicated; F10.10 Alcohol abuse, uncomplicated; E66.01 Morbid (severe) obesity due to excess calories; B96.20 Unspecified Escherichia coli [E. coli] as the cause of diseases classified elsewhere; F41.1 Generalized anxiety disorder; Z68.30 Body mass index [BMI] 30.0-30.9, adult; Z98.84 Bariatric surgery status; Z88.5 Allergy status to narcotic agent; Z88.8 Allergy status to other drugs, medicaments and biological substances; Z91.5 Personal history of self-harm; Z82.49 Family history of ischemic heart disease and other diseases of the circulatory system; Z83.3 Family history of diabetes mellitus; Z71.6 Tobacco abuse counseling; Y83.8 Other surgical procedures as the cause of abnormal reaction of the patient, or of later complication, without mention of misadventure at the time of the procedure; Y82.8 Other medical devices associated with adverse incidents; Y92.238 Other place in hospital as the place of occurrence of the external cause; Z20.828 Contact with and (suspected) exposure to other viral communicable diseases